=== PATIENT | female | born 1960 | race Caucasian/White ===

== ENCOUNTER 2018-07-15 14:52 | Emergency (ER) | payer OTHER ==
[2018-07-15] MEDS ORDERED: methylPREDNISolone 125 MG* 2 ML VIAL IV ONE (15:08)
[2018-07-15] MEDS ORDERED: Albuterol/Ipratropium NEB.SOL* Albuterol 2.5 MG/Ipratropium 0.5 MG 3 ML INH ONE ×2 (15:08→17:00)
--- NOTE | 2018-07-15 15:12 | ED ---
Respiratory - HPI Summary HPI Summary: 57 year female presents with chest pain and shortness pain. She has states she is more short of breath. She has history of COPD. She is smoker. She was to have oxygen at home but her son will not let her have oxygen at home. She started having increasing cough for the past two days. She denies any known fever. She states that she's been having increasing cough for the past 2 months and has been using mucinex. States she was at her primary and was in the waiting room developed the chest pain. She states it was sharp and was in her right side of her chest and radiates to the back. She admits to chest tightness that has since resolved. She was given a DuoNeb neb at the primary felt better. States it feels like when she had pneumonia in the past. She does have history of PE in the past. She is diabetic. - History of Current Complaint Chief Complaint: EDShortnessOfBreath Stated Complaint: SOB,CHEST PAIN PER EMS Time Seen by Provider: 07/15/18 15:02 Pain Intensity: 0 - Allergy/Home Medications Allergies/Adverse Reactions: Allergies Allergy/AdvReac Type Severity Reaction Status Date / Time cat dander Allergy Shortness Verified 07/15/18 14:59 of Breath iodine Allergy Unknown Verified 07/15/18 14:59 Reaction Details Sulfa (Sulfonamide Allergy Anaphylatic Verified 07/15/18 14:59 Antibiotics) Shock sulfacetamide Allergy Anaphylatic Verified 07/15/18 14:59 Shock zolpidem [From Ambien] Allergy Altered Verified 07/15/18 14:59 Mental Status Home Medications: Home Medications Albuterol 2.5MG/3ML (0.083%)* [Ventolin 2.5 MG/3 ML NEB.GREG*] 2.5 mg INH Q4HR PRN 07/15/18 [History Confirmed 07/15/18] Albuterol HFA INHALER* [Ventolin HFA Inhaler*] 1 puff INH Q4HR PRN 07/15/18 [ History Confirmed 07/15/18] Albuterol/Ipratropium RESP(NF) [Combivent Respimat(NF)] 1 puff INH Q6HR [History Confirmed 07/15/18] Amoxicillin/Clavulanate TAB* [Augmentin TAB 500 mg*] 500 mg PO BID 07/15/18 [ History Confirmed 07/15/18] Ascorbic Acid TAB* [Vitamin C TAB*] 500 mg PO QAM 07/15/18 [History Confirmed 07/15/18] Benztropine TAB* [Cogentin TAB*] 1 mg PO BID 07/15/18 [History Confirmed ] Calcium Carbonate/Vitamin D3 [Calcium 600 + Vit D Tablet] 1 tab PO QAM 07/15/18 [History Confirmed 07/15/18] DULoxetine DR CAP* [Cymbalta CAP*] 30 mg PO BID 07/15/18 [History Confirmed 11/25] Docusate CAP* [Colace Cap*] 100 mg PO BID 07/15/18 [History Confirmed 07/15/18] Fluticasone-Salmeterol 500-50* [Advair Diskus 500-50*] 1 puff INH BID 07/15/18 [ History Confirmed 07/15/18] Insulin Glargine,Hum.rec.anlog [Basaglar Kwikpen] 20 unit SUBCUT QAM 07/15/18 [ History Confirmed 07/15/18] Insulin Glargine,Hum.rec.anlog [Basaglar Kwikpen] 55 unit SUBCUT BEDTIME [History Confirmed 07/15/18] Insulin Lispro [Admelog] 0 unit SUBCUT TID AC 07/15/18 [History Confirmed ] LoraTADine TAB(NF) [Claritin 10 MG TAB(NF)] 10 mg PO DAILY 07/15/18 [History Confirmed 07/15/18] Lurasidone(*) [Latuda] 120 mg PO DAILY 07/15/18 [History Confirmed 07/15/18] Melatonin 10 mg PO BEDTIME 07/15/18 [History Confirmed 07/15/18] Multivitamins/Minerals TAB* [Theragran/minerals TAB*] 1 tab PO DAILY 07/15/18 [ History Confirmed 07/15/18] Pantoprazole TAB * [Protonix TAB*] 40 mg PO DAILY 07/15/18 [History Confirmed ] Pregabalin CAP(*) [Lyrica CAP(*)] 200 mg PO TID MDD 600 mg 07/15/18 [History Confirmed 07/15/18] Ramipril CAP* [Altace CAP*] 5 mg PO DAILY 07/15/18 [History Confirmed 07/15/18] Simvastatin (NF) [Zocor (NF)] 40 mg PO BEDTIME 07/15/18 [History Confirmed 07/15] Varenicline 0.5 mg Tab(Nf) [Chantix 0.5 MG TAB(NF)] 0.5 mg PO SEE INSTRUCTIONS 07/15/18 [History Confirmed 07/15/18] busPIRone TAB* [Buspar *] 30 mg PO BID 07/15/18 [History Confirmed 07/15/18] guaiFENesin ER TAB [Mucinex*] 600 mg PO BID PRN 07/15/18 [History Confirmed 11/25] lamoTRIgine TAB(*) [LaMICtal TAB(*)] 100 mg PO BID 07/15/18 [History Confirmed 07/15/18] metFORMIN* [Glucophage 500 MG TAB *] 500 mg PO BID 07/15/18 [History Confirmed 07/15/18] oxyCODONE/Acetamin 5/325 MG* [Percocet 5/325 TAB*] 1 tab PO Q8HR PRN 07/15/18 [ History Confirmed 07/15/18] PMH/Surg Hx/FS Hx/Imm Hx Endocrine/Hematology History: Reports: Hx Diabetes Denies: Hx Anticoagulant Therapy Cardiovascular History: Reports: Hx Coronary Artery Disease, Hx Hypertension Respiratory History: Reports: Hx Chronic Obstructive Pulmonary Disease (COPD) Infectious Disease History: Yes Infectious Disease History: Denies: Traveled Outside the [place] in Last 30 Days Review of Systems Negative: Fever Positive: Chest Pain - resolved Positive: Shortness Of Breath, Cough Negative: Abdominal Pain All Other Systems Reviewed And Are Negative: Yes Physical Exam Triage Information Reviewed: Yes Vital Signs On Initial Exam: Initial Vitals Temp Pulse Resp BP Pulse Ox 98.7 F 118 19 127/85 93 07/15/18 14:55 07/15/18 14:55 07/15/18 14:55 07/15/18 14:55 07/15/18 14:55 Vital Signs Reviewed: Yes Appearance: Positive: Well-Appearing Skin: Positive: Warm, Dry Head/Face: Positive: Normal Head/Face Inspection Eyes: Positive: Normal, EOMI, BERENICE, Conjunctiva Clear ENT: Positive: Normal ENT inspection, Pharynx normal, TMs normal Respiratory/Lung Sounds: Positive: Decreased Breath Sounds, Wheezes Cardiovascular: Positive: Normal, RRR Abdomen Description: Positive: Nontender, Soft Bowel Sounds: Positive: Present Musculoskeletal: Positive: Normal Neurological: Positive: Normal Psychiatric: Positive: Normal Diagnostics - Vital Signs Vital Signs Temp Pulse Resp BP Pulse Ox 07/15/18 14:55 98.7 F 118 19 127/85 93 - Laboratory Result Diagrams: 07/15/18 15:50 07/15/18 15:49 Lab Statement: Any lab studies that have been ordered have been reviewed, and results considered in the medical decision making process. - Radiology chest Radiology Interpretation Completed By: Radiologist Summary of Radiographic Findings: IMPRESSION: #. Stigmata of chronic obstructive pulmonary disease. No acute cardiopulmonary process. evident. - EKG No standard instances Cardiac Rate: Tachycardia EKG Rhythm: Sinus Tachycardia Summary of EKG Findings: sinus tachycardia Re-Evaluation - Re-Evaluation First Eval Re-Evaluation Time: 16:20 Change: Improved Comment: feeling better but still wheezing slightly Second Eval Re-Evaluation Time: 17:40 Change: Improved Comment: less wheezing Third Eval Re-Evaluation Time: 19:30 Change: Improved Comment: wants to go home, able to ambulate without being sob although o2 were about 90 Disposition - Course Course Of Treatment: 57 year female presents with chest pain and shortness pain. She has states she is more short of breath. She has history of COPD. She is smoker. She was to have oxygen at home but her son will not let her have oxygen at home. She started having increasing cough for the past two days. She denies any known fever. She states that she's been having increasing cough for the past 2 months and has been using mucinex. States she was at her primary and was in the waiting room developed the chest pain. She states it was sharp and was in her right side of her chest and radiates to the back. She admits to chest tightness that has since resolved. She was given a DuoNeb neb at the primary felt better. States it feels like when she had pneumonia in the past. On exam decreased breath sounds with wheezes at the bases noted. She is tachycardic. EKG shows sinus tach. wbc normal. crp elevated. troponin zero. bnp normal. chest xray shows copd. gave breathing treatment, solumedrol and feeling better. d-dimer is slightly elevated but not enough to think has PE. patient o2 did drop to 88 with walking and likely needs oxygen at home which she states that she is working on getting. patient does not want to be admitted and is stable enough to be discharged. discussed if anything changes to return. will discharge on augmentin for uti which will also cover for copd. will add on steriod which told sugar will be elevated. patient understand and agrees with plan. - Differential Dx - Cardiopulmonary Differential Diagnoses - Cardiopulmonary: Bronchitis, Exacerbation Of COPD, Lower Resp Infection - Diagnoses Provider Diagnoses: COPD (chronic obstructive pulmonary disease), UTI (urinary tract infection) Discharge - Sign-Out/Discharge Documenting (check all that apply): Patient Departure Patient Received Moderate/Deep Sedation with Procedure: No - Discharge Plan Condition: Stable Disposition: HOME Prescriptions: Amoxicillin/Clavulanate TAB* [Augmentin TAB 500 mg*] 500 mg PO BID #9 tab predniSONE TAB* [Deltasone TAB*] 50 mg PO DAILY #4 tab Patient Education Materials: Urinary Tract Infection in Women (ED), COPD ( Chronic Obstructive Pulmonary Disease) (ED) Referrals: No Primary Care Phys,NOPCP [Primary Care Provider] - Additional Instructions: Use inhaler up to two puffs every 4 hours for cough and wheezing Take steroid once a day for 4 more days starting tomorrow 5 days Take antibiotic twice a day starting tomorrow for 5 days Take Tylenol for pain every 6 hours Follow up with primary within 5 days Return to ED if develop severe shortness of breath, worsening chest pain, or any new or worsening symptoms - Billing Disposition and Condition Condition: STABLE Disposition: Home
[2018-07-15 15:51] LABS: Urine Appearance Cloudy; Urine Bacteria 1+ (Absent); Urine Bilirubin Negative (Negative); Urine Blood Negative (Negative); Urine Color Yellow; Urine Glucose Negative (Negative); Urine Ketones Negative (Negative); Urine Nitrite Positive (Negative); Urine Protein Negative (Negative); Urine Red Blood Cell Trace(0-2/hpf) (Absent); Urine Specific Gravity 1.003 (1.010-1.030); Urine Squamous Epithelial Cell Present (Absent); Urine Urobilinogen Negative (Negative); Urine White Blood Cell 2+(11-20/hpf) (Absent)
[2018-07-15 15:59] LABS: ABS Basophils 0.1 10^3/ul (0-0.2); ABS Eosinophils 0.2 10^3/ul (0-0.6); ABS Lymphocytes 2.7 10^3/ul (1.0-4.8); ABS Monocytes 0.8 10^3/ul (0-0.8); ABS Neutrophils 6.5 10^3/ul (1.5-7.7); ABS Nucleated RBC 0 10^3/ul; Eosinophil % 1.9 %; Hematocrit 44 % (33-41); Hemoglobin 15.3 g/dL (12.0-16.0); Lymphocyte % 26.2 %; Mean Corpuscular HGB Conc 35 g/dL (31-36); Mean Corpuscular Hemoglobin 32 pg (27-31); Mean Corpuscular Volume 92 fL (80-97); Mean Platelet Volume 8.5 fL (7.4-10.4); Nucleated Red Blood Cells % 0; Platelet Count 251 10^3/uL (150-450); Red Cell Distribution Width 16 % (10.5-15); White Blood Count 10.3 10^3/uL (3.5-10.8)
[2018-07-15 16:10] LABS: INR 0.98 (0.77-1.02)
[2018-07-15 16:11] LABS: Influenza A Molecular NEGATIVE (Negative); Influenza B Molecular NEGATIVE (Negative)
[2018-07-15] MEDS ORDERED: Magnesium Sulfate 2 GM IV* 2 GM/50 ML BAG IVPB ONE (16:20)
[2018-07-15 16:24] LABS: Albumin 3.9 g/dL (3.2-5.2); BUN/Creatinine Ratio 16.2 (8-20); C Reactive Protein 10.84 mg/L (<8.01); Calcium 9.6 mg/dL (8.6-10.3); EGFR African American 98.2 (>60); EGFR Non-African American 81.2 (>60); Globulin 3.8 g/dL (2-4); Potassium 4.2 mmol/L (3.5-5.0); Total Bilirubin 0.3 mg/dL (0.2-1.0); Total Protein 7.7 g/dL (6.4-8.9)
[2018-07-15 16:47] LABS: Magnesium 1.7 mg/dL (1.9-2.7)
[2018-07-15] MEDS ORDERED: Levofloxacin TAB* 500 MG PO ONE (19:26)
[2018-07-15 19:56] VITALS: BP 119/76
[2018-07-16 10:07] LABS: Hepatitis C Antibody Low Reactive (Nonreactive)
--- NOTE | 2018-07-17 08:22 | PN ---
Progress Note - Progress Note Date of Service: 07/15/18 Note: Urine culture preliminary grew 100,000 Escherichia coli Patient placed on Augmentin prior to discharge we will await sensitivities this time
--- NOTE | 2018-07-19 14:40 | PN ---
Progress Note - Progress Note Date of Service: 07/15/18 Note: Pt. seen in ED 07/15 and started on augmentin for UTI. Urine culture growing > 100k e. coli with intermittent susceptibility to augmenting. Attempted to call pt.'s number multiple times and it rings busy. No other numbers listed. Will send letter to return call to discuss if sxs are improving.
== END 2018-07-15 19:55 | disposition home or self-care (01) ==
LOC: ED 14:52
DX: J44.9 Chronic obstructive pulmonary disease, unspecified (principal); N39.0 Urinary tract infection, site not specified; B96.20 Unspecified Escherichia coli [E. coli] as the cause of diseases classified elsewhere; E11.9 Type 2 diabetes mellitus without complications; I25.10 Atherosclerotic heart disease of native coronary artery without angina pectoris; I10 Essential (primary) hypertension; R00.0 Tachycardia, unspecified; R06.02 Shortness of breath; F17.200 Nicotine dependence, unspecified, uncomplicated; Z88.2 Allergy status to sulfonamides; Z86.711 Personal history of pulmonary embolism; Z79.4 Long term (current) use of insulin; Z79.84 Long term (current) use of oral hypoglycemic drugs
CPT/HCPCS: 36415; 71046; 80053; 81003; 81015; 83605; 83735; 83880; 84484; 85025; 85379; 85610; 86140; 86803; 87040; 87077; 87086; 87186; 87522; 93005; 96365; 96366; 96374; 96375; 99284; A9270-GY; J2930; J3475

== ENCOUNTER 2019-02-22 13:58 | Inpatient (IN) | payer OTHER ==
--- NOTE | 2019-02-22 14:14 | ED ---
Respiratory - HPI Summary HPI Summary: This patient is a 58 year old female with a Hx of COPD brought in by EMS presenting to [facility] from her PCP with a respiratory complaint since several days ago. She states her PCP sent her here because she likely has pneumonia. She states she has had SOB and cough. She says she had fevers over the last couple of days. She has a nebulizer and has used it several times. She states EMS gave her O2 [employer] to some relief. - History of Current Complaint Chief Complaint: EDShortnessOfBreath Stated Complaint: SHORT OF BREATH Time Seen by Provider: 02/22/19 14:09 Hx Obtained From: Patient Onset/Duration: Lasting Days Pain Intensity: 0 - Allergy/Home Medications Allergies/Adverse Reactions: Allergies Allergy/AdvReac Type Severity Reaction Status Date / Time cat dander Allergy Shortness Verified 07/15/18 14:59 of Breath iodine Allergy Unknown Verified 07/15/18 14:59 Reaction Details Sulfa (Sulfonamide Allergy Anaphylatic Verified 07/15/18 14:59 Antibiotics) Shock sulfacetamide Allergy Anaphylatic Verified 07/15/18 14:59 Shock zolpidem [From Ambien] Allergy Altered Verified 07/15/18 14:59 Mental Status PMH/Surg Hx/FS Hx/Imm Hx Endocrine/Hematology History: Reports: Hx Diabetes Denies: Hx Anticoagulant Therapy Cardiovascular History: Reports: Hx Coronary Artery Disease, Hx Hypertension Respiratory History: Reports: Hx Chronic Obstructive Pulmonary Disease (COPD) Infectious Disease History: No Infectious Disease History: Denies: Traveled Outside the [place] in Last 30 Days - Family History Known Family History: Positive: Hypertension - Social History Alcohol Use: None Substance Use Type: Reports: None Smoking Status (MU): Current Every Day Smoker Review of Systems Positive: Fever Positive: Shortness Of Breath, Cough All Other Systems Reviewed And Are Negative: Yes Physical Exam - Summary Physical Exam Summary: Appearance: The patient is well-nourished in no acute distress and in no acute pain. Skin: The skin is warm and dry, and skin color reflects adequate perfusion. HEENT: The head is normocephalic and atraumatic. The pupils are equal and reactive. The conjunctivae are clear and without drainage. Nares are patent and without drainage. Mouth reveals moist mucous membranes, and the throat is without erythema and exudate. The external ears are intact. The ear canals are patent and without drainage. The tympanic membranes are intact. Neck: The neck is supple with full range of motion and non-tender. There are no carotid bruits. There is no neck vein distension. Respiratory: Chest is non-tender. Upper airway sounds, ronchi, and rales. Cardiovascular: Heart is regular rate and rhythm. There is no murmur or rub auscultated. There is no peripheral edema and pulses are symmetrical and equal. Abdomen: The abdomen is soft and non-tender. There are normal bowel sounds heard in all four quadrants and there is no organomegaly palpated. Musculoskeletal: There is no back tenderness noted. Extremities are non-tender with full range of motion. There is good capillary refill. There is no peripheral edema or calf tenderness elicited. Neurological: Patient is alert and oriented to person, place and time. The patient has symmetrical motor strength in all four extremities. Cranial nerves are grossly intact. Deep tendon reflexes are symmetrical and equal in all four extremities. Psychiatric: The patient has an appropriate affect and does not exhibit any anxiety or depression. Triage Information Reviewed: Yes Vital Signs On Initial Exam: Initial Vitals Temp Pulse Resp BP Pulse Ox 97.0 F 109 28 107/67 93 02/22/19 14:00 02/22/19 14:00 02/22/19 14:00 02/22/19 14:00 02/22/19 14:00 Vital Signs Reviewed: Yes Procedures - Sedation Patient Received Moderate/Deep Sedation with Procedure: No Diagnostics - Vital Signs Vital Signs Temp Pulse Resp BP Pulse Ox 02/22/19 14:00 97.0 F 109 28 107/67 93 - Laboratory Result Diagrams: 02/22/19 14:42 02/22/19 14:42 Lab Statement: Any lab studies that have been ordered have been reviewed, and results considered in the medical decision making process. - Radiology CXR Radiology Interpretation Completed By: Radiologist Summary of Radiographic Findings: No radiographic evidence of acute cardiopulmonary disease. ED Provider has reviewed this report. - EKG 1426 Cardiac Rate: Tachycardia - 106 BPM EKG Rhythm: Sinus Tachycardia Summary of EKG Findings: No STEMI. ED Physician has reviewed and interpreted this report. Disposition - Course Course Of Treatment: Ms. Aguilar is a current smoker with a history of COPD who has been coughing and short of breath for several days. She came in with hypoxia off oxygen which she does not have at home. Chest x-ray showed no acute infiltrate however on arrival she was given antibiotics and fluids. She was given duo nebs and some Solu-Medrol but did not significantly change. I spoke with Dr. Cisneros of the hospitalist team. - Diagnoses Provider Diagnoses: COPD exacerbation Discharge ED - Sign-Out/Discharge Documenting (check all that apply): Patient Departure - Admission, accepted by Dr. Aguilar - Discharge Plan Condition: Stable Disposition: ADMITTED TO [facility] - Billing Disposition and Condition Condition: STABLE Disposition: Admitted to [facility] - Attestation Statements Document Initiated by Adam: Yes Documenting Scribe: Kush Edwards Provider For Whom Adam is Documenting (Include Credential): Bruno Montemayor MD Scribe Attestation: I, Kush Edwards, scribed for Bruno Montemayor MD on 02/22/19 at 2032. Scribe Documentation Reviewed: Yes Provider Attestation: The documentation as recorded by the Kush darnell accurately reflects the service I personally performed and the decisions made by me, Bruno Montemayor MD Status of Scribe Document: Viewed
[2019-02-22] MEDS ORDERED: NS 0.9% 1000 ML** 1,000 ML IV ONE (14:15)
[2019-02-22] MEDS ORDERED: Azithromycin 500 mg/250 ml NS 500 MG/250 ML BAG IVPB ONE (14:15)
[2019-02-22] MEDS ORDERED: cefTRIAXone(*) 1 GM in NS 0.9% 50 ML* 50 ML IVPB ONE (14:15)
[2019-02-22 14:58] LABS: ABS Basophils 0.1 10^3/ul (0-0.2); ABS Lymphocytes 1.5 10^3/ul (1.0-4.8); ABS Monocytes 0.7 10^3/ul (0-0.8); ABS Neutrophils 8.8 10^3/ul (1.5-7.7); Hematocrit 42 % (35-47); Hemoglobin 14.2 g/dL (12.0-16.0); Lymphocyte % 13.2 %; Mean Corpuscular HGB Conc 34 g/dL (31-36); Mean Corpuscular Hemoglobin 32 pg (27-31); Mean Corpuscular Volume 95 fL (80-97); Nucleated Red Blood Cells % 0.1; Platelet Count 163 10^3/uL (150-450); Red Cell Distribution Width 15 % (10-15)
[2019-02-22 15:25] LABS: Albumin 3.3 g/dL (3.2-5.2); BUN/Creatinine Ratio 21.1 (8-20); C Reactive Protein 184.02 mg/L (<8.01); Calcium 8.6 mg/dL (8.6-10.3); EGFR African American 102.7 (>60); EGFR Non-African American 84.8 (>60); Globulin 3.3 g/dL (2-4); Potassium 3.5 mmol/L (3.5-5.0); Total Bilirubin 0.3 mg/dL (0.2-1.0); Total Protein 6.6 g/dL (6.4-8.9)
--- OUTSIDE RECORDS SUMMARY | 2019-02-22 15:31 | XMS REPORT | Summary of Care ---
:1960 Author Organization [facility] Address [address] [facility] [place] [address] Care Team Providers Name Role Phone FinnHannah ortiz Primary Care Provider Reason for Visit Reason Comments Cough c/o productive cough x1 month with green phlegm. Fever 101-103 x3 days. Also c/o SOB. Encounter Details Date Type Department Care Team Description 02/22/2019 Office Visit [facility] [place], Community acquired pneumonia, unspecified laterality (Primary Dx); Practice Darline Rios MD Hypoxia; [address] Hypotension, unspecified hypotension type; [place] [address] [place] [address] Tachycardia [phone] Allergies Active Allergy Reactions Severity Noted Date Comments Ambien Other 02/13/2012 SLEEP WALK Cat Respiratory Reaction 02/13/2012 Iodine 11/28/2010 Sulfa Drugs Cross Reactors Respiratory Reaction 02/13/2012 Sulfacetamide Sodium 11/28/2010 documented as of this encounter (statuses as of 02/22/2019) Medications Medication Sig Dispensed Refills Start Date End Date Status LISPRO insulin, RAPID - Inject beneath 3 vial 5 02/18/2018 Active Acting, (ADMELOG) 100 the skin THREE UNIT/ML Subcutaneous TIMES DAILY Solution BEFORE MEALS. Insulin Syringe 27G X 1 Each by Does 100 Each 5 03/14/2018 Active 1/2" 1 ML Does not not apply route apply Misc DIRECTED. Dx: E11.9 Insulin Syringe-Needle 1 Each by Does 100 Each 5 03/18/2018 Active U-100 (EASY TOUCH not apply route FLIPLOCK INSULIN SY) DIRECTED. 29G X 1/2" 1 ML Does not apply Misc duloxetine (CYMBALTA) Take 1 Cap by 60 Cap 0 03/18/2018 Active 30 MG Oral CAPSULE mouth TWICE ENTERIC COATED DAILY. PARTICLES Additional information Patient taking differently: 30 mg Oral DAILY, Reported on 07/23/2018 1:26 PM lamotrigine (LAMICTAL) 100 Take 1 Tab by mouth TWICE 60 Tab 0 03/19/2018 Active MG Oral Tab DAILY. Lurasidone HCl (LATUDA) 120 Take 120 mg by mouth 30 Tab 0 03/19/2018 Active MG Oral Tab DAILY. Insulin Pen Needle (PEN 1 Each by Does not apply 100 Each 5 04/22/2018 Active NEEDLES) 31G X 5 MM Does not route DIRECTED. apply Misc albuterol (PROVENTIL, 3 mL by Inhalation-SVN 50 vial 3 06/24/2018 Active VENTOLIN) (2.5 MG/3ML) route EVERY FOUR HOURS 0.083% Inhalation Nebu NEEDED (wheezing). SolnIndications: COPD exacerbation (HCC) albuterol HFA (VENTOLIN) 108 Take 2 Puffs by 1 Inhaler 5 06/24/2018 Active (90 Base) MCG/ACT Inhalation inhalation EVERY FOUR Aero SolnIndications: COPD HOURS NEEDED exacerbation (HCC) (wheezing). simvastatin (ZOCOR) 40 MG TAKE ONE TABLET BY MOUTH 30 Tab 5 06/28/2018 Active Oral Tab AT BEDTIME loratadine Take 1 Tab by mouth 30 Tab 5 07/01/2018 Active (CLARITIN,ALAVERT) 10 MG DAILY. Oral Tab Alcohol Swabs (ALCOHOL PREP) 1 Package by Does not 2 Each 3 07/01/2018 Active 70 % Does not apply Pads apply route TWICE DAILY. E11.9 BD SHARPS CONTAINER HOME 1 Container by Does not 1 Each 2 07/01/2018 Active Does not apply Misc apply route DAILY. E11.9 Insulin Glargine (BASAGLAR 20 units in the morning 3 Device 5 07/05/2018 Active KWIKPEN) 100 UNIT/ML and 50 units at bed time Subcutaneous Solution Pen-injector Additional information Patient taking differently: 35 units in the morning and 15 units at bed time , Reported on 02/12/2019 4:06 PM COMBIVENT RESPIMAT 20-100 INHALE ONE PUFF BY MOUTH 3 Inhaler 1 09/16/2018 Active MCG/ACT Inhalation Aero Soln EVERY 6 HOURS ramipril (ALTACE) 2.5 MG TAKE ONE CAPSULE BY MOUTH 90 Cap 1 09/18/2018 Active Oral Cap EVERY MORNING docusate sodium (COLACE) 100 Take 1 Cap by mouth TWICE 60 Cap 5 10/01/2018 Active MG Oral CapIndications: DAILY. Constipation, unspecified constipation type metFORMIN (GLUCOPHAGE) 500 TAKE ONE TABLET BY MOUTH 60 Tab 5 11/07/2018 Active MG Oral Tab TWICE A DAY guaifenesin (MUCINEX) 600 MG Take 1 Tab by mouth EVERY 60 Tab 5 11/15/2018 Active Oral TABLET SR 12 TWELVE HOURS. HRIndications: COPD exacerbation (HCC) Blood Glucose Monitor 1 Device by Does not 1 Device 0 12/10/2018 Active Software Does not apply apply route DIRECTED. Device Insurance preferred. E11.9 Glucose Blood In Vitro Strip 1 Strip by In Vitro route 200 Strip 5 2018 Active TWICE DAILY. Insurance preferred - E11.9 Blood Glucose Monitoring 1 Kit by Does not apply 1 Kit 0 12/18/2018 Active Suppl (D-CARE GLUCOMETER) route TWO TIMES DAILY w/Device Does not apply Kit BEFORE MEALS. Freestyle Lite Meter nystatin (MYCOSTATIN) [id number] Take 5 mL by mouth FOUR 280 mL 0 01/02/2019 Active UNIT/ML Mouth/Throat TIMES DAILY. Swish and Suspension swallow WIXELA INHUB 500-50 MCG/DOSE INHALE ONE PUFF BY MOUTH 1 Inhaler 5 2018 Active Inhalation AEROSOL POWDER, TWICE A DAY BREATH ACTIVATEDIndications: COPD exacerbation (HCC) Pregabalin (LYRICA) 200 MG Take 1 Cap by mouth THREE 90 Cap 3 02/10/2019 Active Oral Cap TIMES DAILY. Max Daily Amount: 600 mg. OXYcodone-acetaminophen TAKE TWO TABLETS BY MOUTH 90 Tab 0 02/13/2019 Active (PERCOCET) 5-325 MG Oral EVERY 8 HOURS NEEDED TabIndications: DDD FOR PAIN MAXIMUM DAILY (degenerative disc disease), DOSE = 6 TABLETS lumbar fluticasone-salmeterol Take 1 INHL by inhalation 0 Active diskus (ADVAIR DISKUS) TWICE DAILY. 500-50 MCG/DOSE Inhalation AEROSOL POWDER, BREATH ACTIVATED documented as of this encounter (statuses as of 02/22/2019) Active Problems Problem Noted Date Urinary retention 06/13/2017 Chronic respiratory failure with hypoxia 06/13/2017 Acute UTI 06/13/2017 Sepsis due to pneumonia 06/12/2017 Multifocal pneumonia 06/11/2017 COPD with asthma Fibromyalgia GERD (gastroesophageal reflux disease) Hyperlipidemia Hypertension Psychiatric disorder Tobacco use disorder Type II diabetes mellitus Overview: non-insulin dependent documented as of this encounter (statuses as of 02/22/2019) Resolved Problems Problem Noted Date Resolved Date Metabolic encephalopathy 06/13/2017 06/13/2017 Acute on chronic respiratory failure with hypoxia 06/12/2017 06/13/2017 [facility] resident 06/12/2017 02/15/2018 Right leg pain 10/02/2012 06/12/2017 Overview: Normal EMG/NCV Degeneration of lumbar or lumbosacral intervertebral disc 10/02/20122017 Degenerative lumbar spinal stenosis 10/02/2012 06/12/[address] 10/02/2012 06/12/2017 Unspecified nonpsychotic mental disorder 10/02/2012 06/12/2017 Chronic back pain 10/02/2012 06/12/2017 Peripheral neuropathy 06/13/2017 documented as of this encounter (statuses as of 02/22/2019) Immunizations Name Administration Dates Next Due Hepatitis B Vaccine 08/13/2017, 07/11/2017 Influenza (IM) Preservative Free 01/01/2019, 01/08/2018, 05/23/2017 MENINGOCOCCAL POLYSACCHARIDE 05/23/2017 VACCINE(MENOMUNE) Pneumococcal Conjugate Vaccine 03/15/2016 Tuberculin Skin Test 06/01/2017, 05/18/2017 documented as of this encounter Social History Tobacco Use Types Packs/Day Years Used Date Current Every Day Smoker 1 35 Started: 11/20/2015 Smokeless Tobacco: Never Used Alcohol Use Drinks/Week oz/Week Comments No ho alcohol abuse Sex Assigned at Date Recorded Not on file Job Start Date Occupation Industry Not on file Not on file Not on file Travel History Travel Start Travel End No recent travel history available. documented as of this encounter Last Filed Vital Signs Vital Sign Reading Time Taken Comments Blood Pressure 80/40 02/22/2019 12:51 PM EST Pulse 126 02/22/2019 12:51 PM EST Temperature 37.3 02/22/2019 12:51 PM C (99.2 EST F) Respiratory Rate - - Oxygen Saturation 91% 02/22/2019 12:51 PM 2 liters Oxygen EST Inhaled Oxygen Concentration - - Weight - - Height - - Body Mass Index - - documented in this encounter Progress Notes Darline Montgomery MD - 02/22/2019 1:00 PM EST PATIENT: Estela Aguilar : 1960 DATE OF SERVICE: 02/22/2019 Nursing Notes: Jolie Diaz LPN 02/22/2019 12:56 PM Sign at exiting of workspace Chief Complaint Patient presents with Cough c/o productive cough x1 month with green phlegm. Fever 101-103 x3 days. Also c /o SOB. Jolie Diaz LPN SUBJECTIVE: History was provided by the patient. Estela Aguilar is a 58-y.o. female who presents with cough and fever. Patient states she has had a productive cough for a month, but worse the last few days with fever [id number] at home. She saw Hannah Cade MD on 02/12/19 for her back pain and review of recent MRI which showed thoracic insufficiency fractures and right paraspinal hematoma. She was referred to neurosurgery. Her cough was not a complaint. O2 sat that visit was 97% Symptoms include congestion, fever, and cough. Onset of symptoms was several days ago, rapidly worsening since that time. She also complains of productive cough with green sputum and wheezing for several days. She denies emesis, diarrhea, bloody or black stool, abdominal pain. She did yesterday call thinking she as a urinary tract infection from [facility] herself and [facility] was called in, which she started. She then complained of cough, chest tightness, shortness of breath and that her nebulizer was not helping. She was directed to the ER twice yesterday and refused. Evaluation to date: none.. Treatment to date: She us using her nebulizer and it has not helped, last used just prior to cominghere today. She is a smoker, has COPD, and has diabetes. She says her glucose this morning was 111, says her diabetes control has been good. MR THORACIC SPINE W CONTRAST Narrative: Procedure(s): MR THORACIC SPINE W CONTRAST Date of service: 02/07/2019 1:31 PM Provided clinical information: 58 years, Female, "r/o tumor" Procedure and materials: Standard protocol. Comparison studies: Noncontrast study of thoracic spine 01/20/2019 Technique: Multisequence multiplanar MR imaging of the thoracic is obtained on a 1.5 Dinah magnet with intravenous contrast. Findings: The vertebral heights and alignment grossly appears well maintained and grossly unchanged from the previous exam. On the noncontrast exam there is signal abnormality seen adjacent to the inferior endplates of T7, T8 and T9 vertebral bodies showing high signal on T2-weighted images, low signal on T1-weighted images, showing postcontrast enhancement. This is also showing adjacent soft tissue involvement in right paracentral location. Findings indicative of bone marrow edema secondary to degenerative changes and there are dominant lateral marginal osteophytes seen predominantly in right paracentral location, at the level of T7-T8 vertebral bodies which are causing adjacent soft tissue edema along with inflammation there by postcontrast enhancement of the bone marrow and adjacent soft tissue is seen. No definite evidence of a focal mass lesion is identified. No fracture is identified. There is no evidence of subluxation of the vertebral bodies. The disc spaces are grossly unremarkable. There is no evidence of disc herniation. Mild endplate changes are seen. Disc osteophyte complex left paracentral location of T10-11 intervertebral disc space with ventral impression on thecal sac without central spinal canal stenosis or neural foraminal narrowing. L1-2 level left sided paracentral disc osteophyte complex, without central spinal canal stenosis. There is no evidence of central spinal stenosis. The neuroforaminal canals are unremarkable. There is no evidence of facet arthrosis.. Facets appear aligned and there is no splaying of the spinous processes, listhesis, fracture. The spinal cord caliber is normal. The spinal cord intensity is normal. There is no evidence of nerve root compression. The posterior elements are unremarkable. are unremarkable. The paravertebral soft tissues are unremarkable. Impression: Findings as described above are indicative of degenerative changes in mid thoracic spine with marginal osteophytes causing inflammation of surrounding soft tissue. There is some bone marrow edema seen adjacent to inferior endplates of T7-T9 vertebral bodies no definite evidence of compression fracture seen on this exam. Vertebral heights and alignment appearing intact. No significant posterior disc disease is seen, except at T10-11 level. There is mild left paracentral disc osteophyte complex without central spinal canal stenosis or neural foraminal narrowing. No abnormal dural or intrathecal enhancement is seen. This exam is peer reviewed Urgency: Routine. This is a routine medical imaging report. Recommendation: No specific imaging recommendation. Signed by Freddie Jett MD, MHA, FCPS on 02/14/2019 12:45 PM Lab Results Component Value Date GLYCO 6.4 (H) 11/28/2018 GLYCO 6.9 (H) 05/30/2018 GLYCO 10.1 (H) 02/20/2018 Lab Results Component Value Date WBC 13.4 (H) 06/14/2017 HGB 11.5 (L) 06/14/2017 HCT 34.0 (L) 06/14/2017 PLAT 228 06/14/2017 Lab Results Component Value Date NA 139 11/28/2018 K 4.3 11/28/2018 CL 102 11/28/2018 CO2 28 11/28/2018 GLUCOSE 63 (L) 11/28/2018 BUN 13 11/28/2018 CREATININE 0.7 11/28/2018 CALCIUM 9.7 11/28/2018 TP 7.6 11/28/2018 ALBUMIN 4.2 11/28/2018 AST 35 11/28/2018 ALT 29 11/28/2018 ALK 74 11/28/2018 TBILI 0.3 11/28/2018 EGFR >60 11/28/2018 Lab Results Component Value Date CHOL 146 11/28/2018 TRIG 95 11/28/2018 HDL 45 (L) 11/28/2018 LDL 82 11/28/2018 LDLHDLRATIO 1.8 11/28/2018 CHOLHDLRATIO 3.2 11/28/2018 Lab Results Component Value Date TSH 0.36 (L) 02/20/2018 Patient Active Problem List Diagnosis Multifocal pneumonia Sepsis due to pneumonia (HCC) COPD with asthma (HCC) Fibromyalgia GERD (gastroesophageal reflux disease) Hyperlipidemia Hypertension Psychiatric disorder Tobacco use disorder Type II diabetes mellitus (HCC) Urinary retention Chronic respiratory failure with hypoxia (HCC) Acute UTI Past Medical History: Diagnosis Date Bipolar affective disorder (HCC) COPD with asthma (HCC) Fibromyalgia GERD (gastroesophageal reflux disease) Hyperlipidemia Schizophrenia (HCC) Type II diabetes mellitus (HCC) non-insulin dependent Current Outpatient Medications Medication Sig albuterol (PROVENTIL, VENTOLIN) (2.5 MG/3ML) 0.083% Inhalation Nebu Soln 3 mL by Inhalation-SVN route EVERY FOUR HOURS NEEDED (wheezing). albuterol HFA (VENTOLIN) 108 (90 Base) MCG/ACT Inhalation Aero Soln Take 2 Puffs by inhalation EVERY FOUR HOURS NEEDED (wheezing). Alcohol Swabs (ALCOHOL PREP) 70 % Does not apply Pads 1 Package by Does not apply route TWICEDAILY. E11.9 BD SHARPS CONTAINER HOME Does not apply Misc 1 Container by Does not apply route DAILY. E11.9 Blood Glucose Monitor Software Does not apply Device 1 Device by Does not apply route DIRECTED. Insurance preferred. E11.9 Blood Glucose Monitoring Suppl (D-CARE GLUCOMETER) w/Device Does not apply Kit 1 Kit by Does not apply route TWO TIMES DAILY BEFORE MEALS. Freestyle Lite Meter COMBIVENT RESPIMAT 20-100 MCG/ACT Inhalation Aero Soln INHALE ONE PUFF BY MOUTH EVERY 6 HOURS docusate sodium (COLACE) 100 MG Oral Cap Take 1 Cap by mouth TWICE DAILY. duloxetine (CYMBALTA) 30 MG Oral CAPSULE ENTERIC COATED PARTICLES Take 1 Cap by mouth TWICE DAILY. (Patient taking differently: Take 30 mg by mouth DAILY.) fluticasone-salmeterol diskus (ADVAIR DISKUS) 500-50 MCG/DOSE Inhalation AEROSOL POWDER, BREATH ACTIVATED Take 1 INHL by inhalation TWICE DAILY. Glucose Blood In Vitro Strip 1 Strip by In Vitro route TWICE DAILY. Insurance preferred - E11.9 guaifenesin (MUCINEX) 600 MG Oral TABLET SR 12 HR Take 1 Tab by mouth EVERY TWELVE HOURS. Insulin Glargine (BASAGLAR KWIKPEN) 100 UNIT/ML Subcutaneous Solution Pen -injector 20 units in the morning and 50 units at bed time (Patient taking differently: 35 units in the morning and 15 units at bed time) Insulin Pen Needle (PEN NEEDLES) 31G X 5 MM Does not apply Misc 1 Each by Does not apply route DIRECTED. Insulin Syringe 27G X 1/2" 1 ML Does not apply Misc 1 Each by Does not apply route DIRECTED. Dx: E11.9 Insulin Syringe-Needle U-100 (EASY TOUCH FLIPLOCK INSULIN SY) 29G X 1/2" 1 ML Does not apply Misc 1 Each by Does not apply route DIRECTED. lamotrigine (LAMICTAL) 100 MG Oral Tab Take 1 Tab by mouth TWICE DAILY. LISPRO insulin, RAPID - Acting, (ADMELOG) 100 UNIT/ML Subcutaneous Solution Inject beneath the skin THREE TIMES DAILY BEFORE MEALS. loratadine (CLARITIN,ALAVERT) 10 MG Oral Tab Take 1 Tab by mouth DAILY. Lurasidone HCl (LATUDA) 120 MG Oral Tab Take 120 mg by mouth DAILY. metFORMIN (GLUCOPHAGE) 500 MG Oral Tab TAKE ONE TABLET BY MOUTH TWICE A DAY nystatin (MYCOSTATIN) 117047 UNIT/ML Mouth/Throat Suspension Take 5 mL by mouth FOUR TIMES DAILY. Swish and swallow OXYcodone-acetaminophen (PERCOCET) 5-325 MG Oral Tab TAKE TWO TABLETS BY MOUTH EVERY 8 HOURS NEEDED FOR PAIN MAXIMUM DAILY DOSE = 6 TABLETS Pregabalin (LYRICA) 200 MG Oral Cap Take 1 Cap by mouth THREE TIMES DAILY. Max Daily Amount: 600 mg. ramipril (ALTACE) 2.5 MG Oral Cap TAKE ONE CAPSULE BY MOUTH EVERY MORNING simvastatin (ZOCOR) 40 MG Oral Tab TAKE ONE TABLET BY MOUTH AT BEDTIME WIXELA INHUB 500-50 MCG/DOSE Inhalation AEROSOL POWDER, BREATH ACTIVATED INHALE ONE PUFF BY MOUTH TWICE A DAY No current facility-administered medications for this visit. Allergies Allergen Reactions Ambien Other SLEEP WALK Cat Respiratory Reaction Iodine Sulfa Drugs Cross Reactors Respiratory Reaction Sulfacetamide Sodium Past Surgical History: Procedure Laterality Date APPENDECTOMY HYSTERECTOMY, ABDOMINAL LAMINECTOMY EXC. OF INTRASPINAL 2010 Laminectomy L3,4,5. Facetectomy L3-4, L4-5 OTHER CERVICAL FUSION 02/2008 fusion C5,6,7, laminectomy C6,7 [place] REMOVAL GALLBLADDER Social History Socioeconomic History Marital status: Spouse name: Not on file Number of children: Not on file Years of education: Not on file Highest education level: Not on file Occupational History Not on file Social Needs Financial resource strain: Not on file Food insecurity: Worry: Not on file Inability: Not on file Transportation needs: Medical: Not on file Non-medical: Not on file Tobacco Use Smoking status: Current Every Day Smoker Packs/day: 1.00 Years: 35.00 Pack years: 35.00 Start date: 11/20/2015 Smokeless tobacco: Never Used Substance and Sexual Activity Alcohol use: No Comment: ho alcohol abuse Drug use: No Sexual activity: Not on file Lifestyle Physical activity: Days per week: Not on file Minutes per session: Not on file Stress: Not on file Relationships Social connections: Talks on phone: Not on file Gets together: Not on file Attends episcopalian service: Not on file Active member of club or organization: Not on file Attends meetings of clubs or organizations: Not on file Relationship status: Not on file Intimate partner violence: Fear of current or ex partner: Not on file Emotionally abused: Not on file Physically abused: Not on file Forced sexual activity: Not on file Other Topics Concern Not on file Social History Narrative Not on file REVIEW OF SYSTEMS: CONSTITUTIONAL: positive for fevers, chills and malaise. EYES: negative. EARS, NOSE, MOUTH, THROAT and FACE: positive for nasal congestion. RESPIRATORY: positive for cough, sputum, dyspnea on exertion or short of breath , negative for hemoptysis. CARDIOVASCULAR: Positive for chest pressure/discomfort, dyspnea yesterday, but denies chest pain now GASTROINTESTINAL: negative for melena, diarrhea, abdominal pain and or bloody stool. She has had intermittent vomiting : She has had dysuria, straight cath's herself four times daily OBJECTIVE: BP (!) 80/40 (BP Location: Left arm, Patient Position: Lying) | Pulse (!) 126 | Temp 99.2 F (37.3 C) | SpO2 91% Comment: 2 liters Oxygen O2 sat on RA on arrival 80% GENERAL: Fatigued with some pallor, ashen-van appearing, diaphoretic, no distress. HEAD: normocephalic, atraumatic without lesions or tenderness EYES: conjunctivae: clear. EARS: normal tympanic membranes and external ear canals, bilaterally. MOUTH: abnormal findings: mild oropharyngeal erythema and very dry tongue and mucosa. NECK: supple, symmetrical, trachea midline and mild anterior cervical adenopathy. HEART: : tahcycardic rate, regular rhythm LUNGS: rales: right base, left base, rhonchi: right apex, left apex, diminished breath sounds: bilateral. ABDOMEN: soft, non-tender. Bowel sounds normal. No masses, no organomegaly. EXTREMITIES: No edema EKG S. Tachycardia, poor baseline, inferior infarct age indeterminate, rate 121 ASSESSMENT/PLAN: ICD-9-CM ICD-10-CM 1. Community acquired pneumonia, unspecified laterality 486 J18.9 2. Hypoxia 799.02 R09.02 3. Hypotension, unspecified hypotension type 458.9 I95.9 4. Tachycardia 785.0 R00.0 Patient reluctantly agrees to go to the ER. Ambulance called given her hypoxia and hypotension. Her ride was helpful als EKG S. Tachycardia, possible old IWMI but poor baseline Ambulance arrived to take patient to [facility] I called and gave report to the ER physician. Author: Darline Montgomery MD 02/22/2019 13:41 documented in this encounter Plan of Treatment Date Type Specialty Care Team Description 02/24/2019 Office Visit Neurosurgery ParamoreMamadou MD [address] [place] [place] [address] [phone] 02/27/2019 Ancillary Procedure Radiology 05/26/2019 Lab Internal Medicine Health Maintenance Due Date Last Done Comments HEPATITIS C SCREENING 2001 COLONOSCOPY SCREENING 12/16/2011 ZOSTER IMMUNIZATION SERIES 12/16/2011 (1 of 2) LUNG CANCER SCREENING 2016 FOOT EXAM 03/14/2019 03/14/2018, 03/14/2018 MAMMOGRAM (SCREENING) 03/14/2019 03/14/2018, 06/22/2017 HEMOGLOBIN A1C 05/31/2019 11/28/2018, 05/30/2018, 02/20/2018, Additional history exists DEPRESSION SCREENING 09/05/2019 09/04/2018 PNEUMOCOCCAL 0-64 YRS (1 of 09/17/2019 03/15/2016 Postponed from 1 - PPSV23) 05/10/2016 (Other) LIPID DISORDER SCREENING 11/29/2019 11/28/2018, 06/28/2018, 02/20/2018 Diabetic Eye Exam 01/15/2020 01/14/2019, 12/05/2018 MENINGOCOCCAL VACCINE IMM Aged Out 05/23/2017 No longer eligible based on patient's age to complete this topic INFLUENZA VACCINE Completed 01/01/2019, 01/08/2018, 05/23/2017 HPV IMMUNIZATION SERIES Aged Out No longer eligible based on patient's age to complete this topic documented as of this encounter Goals Goal Patient Goal Associated Recent Patient-Stated? Author Type Problems Progress Blood Pressure Blood Pressure 80/40 No Rayo, < 140/90 (02/22/2019 Hannah, 12:51 PM EST) Note: This is an individualized treatment (blood pressure) goal for Estela Aguilar: Displayed above (on the left) is your goal for blood pressure control. Your most recent blood pressure is also shown above, on the right. You should try to achieve blood pressures that are lower than your goal listed above (on the left). Smoking Cessation COPD Hannah Layne MD Note: This is an individualized treatment (COPD) goal for Estela Jeff: Quit smoking immediately! Your provider has information and resources that may help you to quit. Glycohemoglobin A1c < 7.0 Diabetes 6.4 (11/28/2018 12:28 Hannah Layne, PM EDT) Note: This is an individualized treatment (diabetes control, HgbA1C) goal for Estela Aguilar: Displayed above is your progress towards your HgbA1C goal. Your goal is shown above (on the left); your most recent HgbA1C is shown on the right. Note that lower numbers are better. Weight loss vs. 18 mo Lifestyle 10.4 (02/12/2019 3:34 PM Hannah Layne MD max (lbs) >= 10 EST) Note: This is an individualized lifestyle goal for Estela Aguilar: Your body mass index (BMI) is more than 30. You should lose weight. A reasonable starting goal is to lose 10 pounds. Displayed above is how many pounds you have lost thus far towards your 10 pound weight loss goal. Keep immunizations current Lifestyle Hannah Layne MD Note: This is an individualized lifestyle goal for Estela Aguilar: Please be sure to keep up-to-date on recommended immunizations. For example, this would include a yearly influenza vaccine. Immunization status can be seen by looking at the Health Maintenance sections of your [facility], Plan of Care, and any After Visit Summaries. Take all prescribed medications as Self-management Hannah Layne MD directed Note: This is an individualized self-management goal for Estela Aguilar: Please take all prescribed medications as directed. 1. Do not skip doses. If you cannot afford your medications, talk with your doctor. 2. Use a pill reminder system such as a pill box if needed. Your pharmacist can help you with this. 3. Contact your Pharmacy 5 days before your medication runs out. If you cannot take your medications for any reasons, talk with your doctor. 4. Please bring all of your medication bottles and inhalers (or a list of all your medications/inhalers) with you to every visit. Potential barriers to meeting all of your care plan goals will continue to be addressed on an ongoing basis. documented as of this encounter Results Not on filedocumented in this encounter Visit Diagnoses Diagnosis Community acquired pneumonia, unspecified laterality - Primary Hypoxia Hypoxemia Hypotension, unspecified hypotension type Tachycardia Tachycardia, unspecified documented in this encounter Guarantor Name Account Type Relation to Date of Phone Billing Address Patient Estela Aguilar Personal/Family 1960 [address] [facility] (Home) [place], [place] [phone] (Work) documented as of this encounter
--- OUTSIDE RECORDS SUMMARY | 2019-02-22 15:31 | XMS REPORT | Summary of Care ---
:1960 Author Organization [facility] Address [address] [facility] [place] [address] Care Team Providers Name Role Phone Hannah Cade Primary Care Provider Reason for Referral Refer to Department Only (Routine) Status Reason Specialty Diagnoses / Referred By Referred To Procedures Contact Contact Pending Review NEUROSURGERY / Diagnoses Midline thoracic back pain, unspecified chronicity Luz Cade MD [address] [place] [address] Scheduling Instructions For Pituitary Masses: Refer to Endocinology and Ophthalmology for testing. Patients already having this testing should have an internal referral to Neurosurgery placed. For Suspected Normal Pressure Hydrocephalus: Refer to neurology for a dementia work up, have a large volume lumbar puncture (40 cc) performed. For incontinence, refer to Urology. Obtain Physical Therapy Gait evaluation before and after large volume lumbar puncture. Patients should have the above work ups performed prior to consulting Neurosurgery. For Confirmed Normal Pressure Hydrocephalus: Consult Neurosurgery. Reason for Visit Reason Comments Follow Up MRI results, 01/20 w/o contrast, 02/07 w/contrast Encounter Details Date Type Department Care Team Description 02/12/2019 Office Visit [facility], Midline thoracic back pain , unspecified chronicity (Primary Dx); Practice MD Hannah Age-related osteoporosis with current pathological fracture, initial encounter [address] [place] [address] [place] [address] [phone] Allergies Active Allergy Reactions Severity Noted Date Comments Ambien Other 02/13/2012 SLEEP WALK Cat Respiratory Reaction 02/13/2012 Iodine 11/28/2010 Sulfa Drugs Cross Reactors Respiratory Reaction 02/13/2012 Sulfacetamide Sodium 11/28/2010 documented as of this encounter (statuses as of 02/12/2019) Medications Medication Sig Dispensed Refills Start Date [...] Reported on 02/12/2019 4:06 PM COMBIVENT RESPIMAT INHALE ONE PUFF BY 3 Inhaler 1 09/16/2018 Active 20-100 MCG/ACT MOUTH EVERY 6 Inhalation Aero Soln HOURS ramipril (ALTACE) 2.5 TAKE ONE CAPSULE 90 Cap 1 09/18/2018 Active MG Oral Cap BY MOUTH EVERY MORNING docusate sodium Take 1 Cap by 60 Cap 5 10/01/2018 Active (COLACE) 100 MG Oral mouth TWICE DAILY. CapIndications: Constipation, unspecified constipation type metFORMIN (GLUCOPHAGE) TAKE ONE TABLET BY 60 Tab 5 11/07/2018 Active 500 MG Oral Tab MOUTH TWICE A DAY guaifenesin (MUCINEX) Take 1 Tab by 60 Tab 5 11/15/2018 Active 600 MG Oral TABLET SR mouth EVERY TWELVE 12 HRIndications: COPD HOURS. exacerbation (HCC) Blood Glucose Monitor 1 Device by Does 1 Device 0 12/10/2018 Active Software Does not not apply route apply Device DIRECTED. Insurance preferred. E11.9 Glucose Blood In Vitro 1 Strip by In 200 Strip 5 12/10/2018 Active Strip Vitro route TWICE DAILY. Insurance preferred - E11.9 Blood Glucose 1 Kit by Does not 1 Kit 0 12/18/2018 Active Monitoring Suppl apply route TWO (D-CARE GLUCOMETER) TIMES DAILY BEFORE w/Device Does not MEALS. Freestyle apply Kit Lite Meter nystatin (MYCOSTATIN) Take 5 mL by mouth 280 mL 0 01/02/2019 Active 922763 UNIT/ML FOUR TIMES DAILY. Mouth/Throat Swish and swallow Suspension OXYcodone-acetaminophe Take 2 Tabs by 90 Tab 0 01/13/2019 Active n (PERCOCET) 5-325 MG mouth EVERY EIGHT Oral TabIndications: HOURS NEEDED DDD (degenerative disc (pain). Max Daily disease), lumbar Amount: 6 Tabs. WIXELA INHUB 500-50 INHALE ONE PUFF BY 1 Inhaler 5 01/30/2019 Active MCG/DOSE Inhalation MOUTH TWICE A DAY AEROSOL POWDER, BREATH ACTIVATEDIndications: COPD exacerbation (HCC) Pregabalin (LYRICA) Take 1 Cap by 90 Cap 3 02/10/2019 Active 200 MG Oral Cap mouth THREE TIMES DAILY. Max Daily Amount: 600 mg. levofloxacin Take 1 Tab by 10 Tab 1 12/26/2018 Discontinued (LEVAQUIN) 500 MG Oral mouth DAILY 0700 9 Tab on Empty Stomach. fluconazole (DIFLUCAN Take 1 Tab by 5 Tab 0 01/01/2019 Discontinued 100 MG) 100 MG Oral mouth DAILY. 9 Tab documented as of this encounter (statuses as of 02/12/2019) Active Problems Problem Noted Date Urinary retention 06/13/2017 Chronic respiratory failure with hypoxia 06/13/2017 Acute UTI 06/13/2017 Sepsis due to pneumonia 06/12/2017 Multifocal pneumonia 06/11/2017 COPD with asthma Fibromyalgia GERD (gastroesophageal reflux disease) Hyperlipidemia Hypertension Psychiatric disorder Tobacco use disorder Type II diabetes mellitus Overview: non-insulin dependent documented as of this encounter (statuses as of 02/12/2019) Resolved Problems Problem Noted Date Resolved Date Metabolic encephalopathy 06/13/2017 06/13/2017 Acute on chronic respiratory failure with hypoxia 06/12/2017 06/13/2017 half-way resident 06/12/2017 02/15/2018 Right leg pain 10/02/2012 06/12/2017 Overview: Normal EMG/NCV Degeneration of lumbar or lumbosacral intervertebral disc 10/02/20122017 Degenerative lumbar spinal stenosis 10/02/2012 06/12/[address] 10/02/2012 06/12/2017 Unspecified nonpsychotic mental disorder 10/02/2012 06/12/2017 Chronic back pain 10/02/2012 06/12/2017 Peripheral neuropathy 06/13/2017 documented as of this encounter (statuses as of 02/12/2019) Immunizations Name Administration Dates Next Due Hepatitis [...] Sign Reading Time Taken Comments Blood Pressure 114/72 02/12/2019 3:34 PM EST Pulse 102 02/12/2019 3:34 PM EST Temperature 37.4 02/12/2019 3:34 PM EST C (99.4 F) Respiratory Rate - - Oxygen Saturation 97% 02/12/2019 3:34 PM EST Inhaled Oxygen Concentration - - Weight 93.9 kg (207 lb) 02/12/2019 3:34 PM EST Height 167.6 cm (5' 6") 02/12/2019 3:34 PM EST Body Mass Index 33.41 02/12/2019 3:34 PM EST documented in this encounter Patient Instructions Patient InstructionsHannah Cade MD - 02/12/2019 3:40 PM EST1. Schedule appointment with neurosurgeon 2. Schedule Dexa documented in this encounter Progress Notes Hannah Cade MD - 02/12/2019 3:40 PM EST Patient: Estela Aguilar Date of Service: 02/12/2019 Subjective: Estela Aguilar is a 58-y.o. female who presents for Chief Complaint Patient presents with Follow Up MRI results, 01/20 w/o contrast, 02/07 w/contrast Patient comes follow up Thoracic pain Fair pain control on current medication Past Medical History: Diagnosis Date Bipolar affective disorder (HCC) COPD with asthma (HCC) Fibromyalgia GERD (gastroesophageal reflux disease) Hyperlipidemia Schizophrenia (HCC) Type II diabetes mellitus (HCC) non-insulin dependent Outpatient Medications as of 02/12/2019 Medication Sig Dispense Refill albuterol (PROVENTIL, VENTOLIN) (2.5 MG/3ML) 0.083% Inhalation Nebu Soln 3 mL by Inhalation-SVN route EVERY FOUR HOURS NEEDED (wheezing). 50 vial 3 albuterol HFA (VENTOLIN) 108 (90 Base) MCG/ACT Inhalation Aero Soln Take 2 Puffs by inhalation EVERY FOUR HOURS NEEDED (wheezing). 1 Inhaler 5 Alcohol Swabs (ALCOHOL PREP) 70 % Does not apply Pads 1 Package by Does not apply route TWICEDAILY. E11.9 2 Each 3 BD SHARPS CONTAINER HOME Does not apply Misc 1 Container by Does not apply route DAILY. E11.91 Each 2 Blood Glucose Monitor Software Does not apply Device 1 Device by Does not apply route DIRECTED. Insurance preferred. E11.9 1 Device 0 Blood Glucose Monitoring Suppl (D-Molecular Detection GLUCOMETER) w/Device Does not apply Kit 1 Kit by Does not apply route TWO TIMES DAILY BEFORE MEALS. Freestyle Lite Meter 1 Kit 0 COMBIVENT RESPIMAT 20-100 MCG/ACT Inhalation Aero Soln INHALE ONE PUFF BY MOUTH EVERY 6 HOURS3 Inhaler 1 docusate sodium (COLACE) 100 MG Oral Cap Take 1 Cap by mouth TWICE DAILY. 60 Cap 5 duloxetine (CYMBALTA) 30 MG Oral CAPSULE ENTERIC COATED PARTICLES Take 1 Cap by mouth TWICE DAILY. (Patient taking differently: Take 30 mg by mouth DAILY.) 60 Cap 0 Glucose Blood In Vitro Strip 1 Strip by In Vitro route TWICE DAILY. Insurance preferred - E11.9 200 Strip 5 guaifenesin (MUCINEX) 600 MG Oral TABLET SR 12 HR Take 1 Tab by mouth EVERY TWELVE HOURS. 60 Tab 5 Insulin Glargine (BASAGLAR KWIKPEN) 100 UNIT/ML Subcutaneous Solution Pen -injector 20 units in the morning and 50 units at bed time (Patient taking differently: 35 units in the morning and 15 units at bed time) 3 Device 5 Insulin Pen Needle (PEN NEEDLES) 31G X 5 MM Does not apply Misc 1 Each by Does not apply route DIRECTED. 100 Each 5 Insulin Syringe 27G X 1/2" 1 ML Does not apply Misc 1 Each by Does not apply route DIRECTED. Dx: E11.9 100 Each 5 Insulin Syringe-Needle U-100 (EASY TOUCH FLIPLOCK INSULIN SY) 29G X 1/2" 1 ML Does not apply Misc 1 Each by Does not apply route DIRECTED. 100 Each 5 lamotrigine (LAMICTAL) 100 MG Oral Tab Take 1 Tab by mouth TWICE DAILY. 60 Tab 0 LISPRO insulin, RAPID - Acting, (ADMELOG) 100 UNIT/ML Subcutaneous Solution Inject beneath the skin THREE TIMES DAILY BEFORE MEALS. 3 vial 5 loratadine (CLARITIN,ALAVERT) 10 MG Oral Tab Take 1 Tab by mouth DAILY. 30 Tab 5 Lurasidone HCl (LATUDA) 120 MG Oral Tab Take 120 mg by mouth DAILY. 30 Tab 0 metFORMIN (GLUCOPHAGE) 500 MG Oral Tab TAKE ONE TABLET BY MOUTH TWICE A DAY 60 Tab 5 nystatin (MYCOSTATIN) 349408 UNIT/ML Mouth/Throat Suspension Take 5 mL by mouth FOUR TIMES DAILY. Swish and swallow 280 mL 0 OXYcodone-acetaminophen (PERCOCET) 5-325 MG Oral Tab Take 2 Tabs by mouth EVERY EIGHT HOURS NEEDED (pain). Max Daily Amount: 6 Tabs. 90 Tab 0 Pregabalin (LYRICA) 200 MG Oral Cap Take 1 Cap by mouth THREE TIMES DAILY. Max Daily Amount: 600 mg. 90 Cap 3 ramipril (ALTACE) 2.5 MG Oral Cap TAKE ONE CAPSULE BY MOUTH EVERY MORNING 90 Cap 1 simvastatin (ZOCOR) 40 MG Oral Tab TAKE ONE TABLET BY MOUTH AT BEDTIME 30 Tab 5 WIXELA INHUB 500-50 MCG/DOSE Inhalation AEROSOL POWDER, BREATH ACTIVATED INHALE ONE PUFF BY MOUTH TWICE A DAY 1 Inhaler 5 No current facility-administered medications on file as of 02/12/2019. Allergies Allergen Reactions Ambien Other SLEEP WALK Cat Respiratory Reaction Iodine Sulfa Drugs Cross Reactors Respiratory Reaction Sulfacetamide Sodium Objective: BP 114/72 (BP Location: Right arm, Patient Position: Sitting) Pulse 102 Temp 99.4 F (37.4 C) (Tympanic) Ht 5' 6" (1.676 m) Wt 207 lb (93.9 kg) SpO2 97% BMI 33.41 kg/m2 General appearance: alert, in no distress. MRI of Thoracic spine: Again seen is hardware artifact which appears to extend within T1. The hardware itself is not well visualized. There is increased hyperintense signal within the right aspect of T7, T8 and T9 on sagittal inversion recovery sequences consistent with acute edema. There is corresponding loss of T1 signal at these locations. There is no definitive vertebral body height loss. There is prominence of the right paraspinal musculature seen on axial imaging at these locations as well. Vertebral body alignment is maintained. There are small disc osteophyte complexes seen posteriorly at multiple levels of the lower thoracic spine resulting in very minimal central canal compression. Spinal cord signal remains within normal. IMPRESSION 1. Hyperintense signal within the right aspect of T7, T8 and T9 with prominence of right paraspinal musculature and no definitive vertebral body height loss. These findings are likely most consistent with insufficiency fractures with associated right paraspinal hematoma. Spinal cord signal is within normal. Would recommend follow-up MRI thoracic spine imaging to include IV contrast to ensure that there is no underlying mass. MRI of Thoracic spine with contrast was done, but not read yet Patient advised on tests results ICD-9-CM ICD-10-CM 1. Midline thoracic back pain, unspecified chronicity 724.1 M54.6 2. Age-related osteoporosis with current pathological fracture, initial encounter 733.10 M80.00XA XRDEXA SCAN 1 OR MORE SITES 733.01 REFER TO NEUROSURGERY Patient Instructions 1. Schedule appointment with neurosurgeon 2. Schedule Dexa Author: Hannah Cade MD documented in this encounter Plan of Treatment Date Type Specialty Care Team Description 02/24/2019 Office Visit Neurosurgery Mamadou Urbina MD [address] [place] [address] [phone] 02/27/2019 Ancillary Procedure Radiology 05/26/2019 Lab Internal Medicine Name Type Priority Associated Diagnoses Order Schedule XR DEXA SCAN 1 OR Imaging Routine Age-related osteoporosis Expected: 2018, MORE SITES with current pathological Expires: 07/31/2021 fracture, initial encounter Name Type Priority Associated Diagnoses Order Schedule REFER TO NEUROSURGERY Referral Routine Midline thoracic back Expected: 09/2018, pain, unspecified Expires: 02/13/2020 chronicity Health Maintenance Due Date Last Done Comments [...] Type Problems Progress Blood Pressure Blood Pressure 114/72 No Rayo, < 140/90 (02/12/2019 Hannah, 3:34 PM EST) Note: This is an individualized treatment (blood pressure) goal for Estela Aguilar: Displayed above (on the left) is your goal for blood pressure control. Your most recent blood pressure is also shown above, on the right. You should try to achieve blood pressures that are lower than your goal listed above (on the left). Smoking Cessation COPD No Hannah Cade MD Note: This is an individualized treatment (COPD) goal for Estela Aguilar: Quit smoking immediately! Your provider has information and resources that may help you to quit. Glycohemoglobin A1c < 7.0 Diabetes 6.4 (11/28/2018 12:28 No Hannah Cade, PM EDT) Note: This is an individualized treatment (diabetes control, HgbA1C) goal for Estela Aguilar: Displayed above is your progress towards your HgbA1C goal. Your goal is shown above (on the left); your most recent HgbA1C is shown on the right. Note that lower numbers are better. Weight loss vs. 18 mo Lifestyle 10.4 (02/12/2019 3:34 PM No Hannah Cade MD max (lbs) >= 10 EST) Note: This is an individualized lifestyle goal for Estela Aguilar: Your body mass index (BMI) is more than 30. You should lose weight. A reasonable starting goal is to lose 10 pounds. Displayed above is how many pounds you have lost thus far towards your 10 pound weight loss goal. Keep immunizations current Lifestyle No Hannah Cade MD Note: This is an individualized lifestyle goal for Estela Aguilar: Please be sure to keep up-to-date on recommended immunizations. For example, this would include a yearly influenza vaccine. Immunization status can be seen by looking at the Health Maintenance sections of your [employer], Plan of Care, and any After Visit Summaries. Take all prescribed medications as Self-management No Hannah Cade MD directed Note: This is an individualized [...] filedocumented in this encounter Visit Diagnoses Diagnosis Midline thoracic back pain, unspecified chronicity - Primary Age-related osteoporosis with current pathological fracture, initial encounter documented in this encounter Guarantor Name Account Type Relation to Date of Phone Billing Address Patient Estela Aguilar Personal/Family 1960 [address] [facility] (Home) [place], [place] [phone] (Work) documented as of this encounter
--- OUTSIDE RECORDS SUMMARY | 2019-02-22 15:31 | XMS REPORT | Summary of Care ---
:1960 Author Organization [facility] Address [address] [facility] [place] [address] Care Team Providers Name Role Phone Hannah Cade Primary Care Provider Reason for Referral MRI/CAT/PET Scan (Routine) Status Reason Specialty Diagnoses / Referred By Referred To Procedures Contact Contact Pending Review Diagnoses Midline thoracic back pain, unspecified chronicity Rayo, Procedures CT SPINE THORACIC MD Hannah [address] [place] [address] Reason for Visit Reason Comments Follow Up to COPD exacerbation, and back pain, pt also stated throat hurts thinks the thrush has moved to her throat Encounter Details Date Type Department Care Team Description 01/01/2019 Office Visit Jaun Cade, Midline thoracic back pain , unspecified chronicity (Primary Dx); Practice MD Hannah Flu vaccine need; [address] [place] [address] COPD exacerbation (HCC); [place] [address] [place] [address] Oral candidosis [phone] Allergies Active Allergy Reactions Severity Noted Date Comments Ambien Other 02/13/2012 SLEEP WALK Cat Respiratory Reaction 02/13/2012 Iodine 11/28/2010 Sulfa Drugs Cross Reactors Respiratory Reaction 02/13/2012 Sulfacetamide Sodium 11/28/2010 documented as of this encounter (statuses as of 01/01/2019) Medications Medication Sig Dispensed Refills Start Date [...] Solution Pen-injector Additional information Patient taking differently: 20 units in the morning and 50 units at bed time , Indications: 15 am and 45 pm, Reported on 12/26/2018 2:56 PM COMBIVENT RESPIMAT INHALE ONE PUFF BY 3 Inhaler 1 09/16/2018 Active 20-100 MCG/ACT MOUTH EVERY 6 Inhalation Aero Soln HOURS ramipril (ALTACE) 2.5 TAKE ONE CAPSULE 90 Cap 1 09/18/2018 Active MG Oral Cap BY MOUTH EVERY MORNING Pregabalin (LYRICA) Take 1 Cap by 90 Cap 3 10/01/2018 Active 200 MG Oral Cap mouth THREE TIMES DAILY. Max Daily Amount: 600 mg. docusate sodium Take 1 Cap by 60 Cap 5 10/01/2018 Active (COLACE) 100 MG Oral mouth TWICE DAILY. CapIndications: Constipation, unspecified constipation type metFORMIN (GLUCOPHAGE) TAKE ONE TABLET BY 60 Tab 5 11/07/2018 Active 500 MG Oral Tab MOUTH TWICE A DAY fluticasone-salmeterol INHALE ONE PUFF BY 1 Inhaler 1 11/13/2018 Active diskus (ADVAIR) 500-50 MOUTH TWICE A DAY MCG/DOSE Inhalation AEROSOL POWDER, BREATH ACTIVATEDIndications: COPD exacerbation (HCC) guaifenesin (MUCINEX) Take 1 Tab by 60 [...] not MEALS. Freestyle apply Kit Lite Meter levofloxacin Take 1 Tab by 10 Tab 1 12/26/2018 Active (LEVAQUIN) 500 MG Oral mouth DAILY 0700 Tab on Empty Stomach. OXYcodone-acetaminophe Take 1 Tab by 90 Tab 0 12/30/2018 Active n (PERCOCET) 5-325 MG mouth EVERY EIGHT Oral TabIndications: HOURS NEEDED DDD (degenerative disc (pain). Max Daily disease), lumbar Amount: 3 Tabs. fluconazole (DIFLUCAN Take 1 Tab by 5 Tab 0 01/01/2019 Active 100 MG) 100 MG Oral mouth DAILY. Tab nicotine (NICORETTE) 2 Place 1 Each 30 Each 1 09/04/2018 Discontinued MG Mouth/Throat Gum between lower 9 cheek and gum NEEDED (craving). documented as of this encounter (statuses as of 01/01/2019) Active Problems Problem Noted Date Urinary retention 06/13/2017 Chronic respiratory failure with hypoxia 06/13/2017 Acute UTI 06/13/2017 Sepsis due to pneumonia 06/12/2017 Multifocal pneumonia 06/11/2017 COPD with asthma Fibromyalgia GERD (gastroesophageal reflux disease) Hyperlipidemia Hypertension Psychiatric disorder Tobacco use disorder Type II diabetes mellitus Overview: non-insulin dependent documented as of this encounter (statuses as of 01/01/2019) Resolved Problems Problem Noted Date Resolved Date Metabolic encephalopathy 06/13/2017 06/13/2017 Acute on chronic respiratory failure with hypoxia 06/12/2017 06/13/2017 long-term resident 06/12/2017 02/15/2018 Right leg pain 10/02/2012 06/12/2017 Overview: Normal EMG/NCV Degeneration of lumbar or lumbosacral intervertebral disc 10/02/20122017 Degenerative lumbar spinal stenosis 10/02/2012 06/12/[address] 10/02/2012 06/12/2017 Unspecified nonpsychotic mental disorder 10/02/2012 06/12/2017 Chronic back pain 10/02/2012 06/12/2017 Peripheral neuropathy 06/13/2017 documented as of this encounter (statuses as of 01/01/2019) Immunizations Name Administration Dates Next Due Hepatitis [...] Sign Reading Time Taken Comments Blood Pressure 126/64 01/01/2019 11:16 AM EDT Pulse 123 01/01/2019 11:16 AM EDT Temperature 37.4 01/01/2019 11:16 AM EDT C (99.3 F) Respiratory Rate - - Oxygen Saturation 94% 01/01/2019 11:16 AM EDT Inhaled Oxygen Concentration - - Weight 96.8 kg (213 lb 8 oz) 01/01/2019 11:16 AM EDT Height 167.6 cm (5' 6") 01/01/2019 11:16 AM EDT Body Mass Index 34.46 01/01/2019 11:16 AM EDT documented in this encounter Patient Instructions Patient InstructionsHannah Cade MD - 01/01/2019 11:[address] scan of Thoracis spine and ribs 2. Take Diflucan 100 mg once a day for 5 day 3. Follow up after the test and as needed documented in this encounter Progress Notes Hannah Cade MD - 01/01/2019 11:20 AM EDT PATIENT: Estela Aguilar : 1960 DATE OF SERVICE: 01/01/2019 Patient comes follow up COPD exacerbation Reduced cough on Levaquin Continues to complain of sore throat, pain with swallowing Treated for Trash with Nystatin with some improvement, but now the symptoms are back Continues to complains of Thoracic back pain referring to the RF ribs, increasing with cough, movement Past Medical History: Diagnosis Date Bipolar affective disorder (HCC) COPD with asthma (HCC) Fibromyalgia GERD (gastroesophageal reflux disease) Hyperlipidemia Schizophrenia (HCC) Type II diabetes mellitus (HCC) non-insulin dependent Outpatient Medications as of 01/01/2019 Medication Sig Dispense Refill albuterol (PROVENTIL, VENTOLIN) [...] 1 Device 0 Blood Glucose Monitoring Suppl (D-CARE GLUCOMETER) w/Device [...] mg by mouth DAILY.) 60 Cap 0 fluticasone-salmeterol diskus (ADVAIR) 500-50 MCG/DOSE Inhalation AEROSOL POWDER, BREATH ACTIVATED INHALE ONE PUFF BY MOUTH TWICE A DAY 1 Inhaler 1 Glucose Blood In Vitro Strip 1 Strip [...] units at bed time (Patient taking differently: 20 units in the morning and 50 units at bed time Indications: 15 am and 45 pm) 3 Device 5 Insulin Pen Needle (PEN [...] by mouth TWICE DAILY. 60 Tab 0 levofloxacin (LEVAQUIN) 500 MG Oral Tab Take 1 Tab by mouth DAILY 0700 on Empty Stomach. 10 Tab 1 LISPRO insulin, RAPID - Acting, (ADMELOG) 100 [...] MOUTH TWICE A DAY 60 Tab 5 OXYcodone-acetaminophen (PERCOCET) 5-325 MG Oral Tab Take 1 Tab by mouth EVERY EIGHT HOURS ASNEEDED (pain). Max Daily Amount: 3 Tabs. 90 Tab 0 Pregabalin (LYRICA) 200 MG Oral Cap Take 1 Cap by mouth THREE TIMES DAILY. Max Daily Amount: 600 mg. 90 Cap 3 ramipril (ALTACE) 2.5 MG Oral Cap TAKE ONE CAPSULE BY MOUTH EVERY MORNING 90 Cap 1 simvastatin (ZOCOR) 40 MG Oral Tab TAKE ONE TABLET BY MOUTH AT BEDTIME 30 Tab 5 No current facility-administered medications on file as of 01/01/2019. BP 126/64 (BP Location: Left arm, Patient Position: Sitting) | Pulse (!) 123 | Temp 99.3 F (37.4 C) | Ht 5' 6" (1.676 m) | Wt 213 lb 8 oz (96.8 kg ) | SpO2 94% | BMI 34.46 kg/m General appearance: alert, and anxious. Oropharyngeal exam - erythematous mucosa. Chest: bilaterally reduced air entry, bilateral rhonchi. CVS exam: regular rhythm, tachycardia Back exam: tenderness in mid and low Thoracic spine ICD-9-CM ICD-10-CM 1. Midline thoracic back pain, unspecified chronicity 724.[address] SPINE THORACIC 2. Flu vaccine need V04.81 Z23 [place] FLU VACCINE PRES FREE 6MOS+ 3. COPD exacerbation (HCC) 491.21 J44.1 4. Oral candidosis 112.0 B37.0 Patient Instructions 1. Schedule CT scan of Thoracis spine and ribs 2. Take Diflucan 100 mg once a day for 5 day 3. Follow up after the test and as needed Author: Hannah Cade MD 01/01/2019 12:05 documented in this encounter Plan of Treatment Date Type Specialty Care Team Description 05/26/2019 Lab Internal Medicine Name Type Priority Associated Diagnoses Order Schedule CT SPINE THORACIC Imaging Routine Midline thoracic back pain, Expected: , unspecified chronicity Expires: 01/01/2020 Health Maintenance Due Date Last Done Comments HEPATITIS C SCREENING 2001 COLONOSCOPY SCREENING 12/16/2011 ZOSTER IMMUNIZATION SERIES 12/16/2011 (1 of 2) INFLUENZA VACCINE (#1) 2018 01/08/2018, 05/23/2017 FOOT EXAM 03/14/2019 03/14/2018, 03/14/2018 MAMMOGRAM (SCREENING) 03/14/2019 03/14/2018, 06/22/2017 HEMOGLOBIN A1C 05/31/2019 11/28/2018, 05/30/2018, 02/20/2018, Additional history exists DEPRESSION SCREENING 09/05/2019 09/04/2018 PNEUMOCOCCAL 0-64 YRS (1 of 09/17/2019 03/15/2016 Postponed from 1 - PPSV23) 05/10/2016 (Other) LIPID DISORDER SCREENING 11/29/2019 11/28/2018, 06/28/2018, 02/20/2018 Diabetic Eye Exam 12/05/2020 12/05/2018 MENINGOCOCCAL VACCINE IMM Aged Out 05/23/2017 No longer eligible based on patient's age to complete this topic HPV IMMUNIZATION SERIES Aged Out No longer eligible based on patient's age to complete this topic documented as of this encounter Goals Goal Patient Goal Associated Recent Patient-Stated? Author Type Problems Progress Blood Pressure Blood Pressure 126/64 No Rayo, < 140/90 (01/01/2019 Hannah, 11:16 AM EDT) Note: This is an individualized treatment (blood pressure) goal for Estela Aguilar: Displayed above (on the left) is your goal for blood pressure control. Your most recent blood pressure is also shown above, on the right. You should try to achieve blood pressures that are lower than your goal listed above (on the left). Glycohemoglobin A1c < 7.0 Diabetes 6.4 (11/28/2018 12:28 Hannah Layne PM EDT) Note: This is an individualized treatment (diabetes control, HgbA1C) goal for Estela Aguilar: Displayed above is your progress towards your HgbA1C goal. Your goal is shown above (on the left); your most recent HgbA1C is shown on the right. Note that lower numbers are better. Weight loss vs. 18 mo Lifestyle 3.9 (01/01/2019 11:16 AM No Hannah Cade MD max (lbs) >= 10 EDT) Note: This is an individualized lifestyle goal [...] is an individualized lifestyle goal for Estela Jeff: Please be sure to keep up-to-date on [...] thoracic back pain, unspecified chronicity - Primary Flu vaccine need Need for prophylactic vaccination and inoculation against influenza COPD exacerbation (HCC) Obstructive chronic bronchitis with exacerbation Oral candidosis Candidiasis of mouth documented in this encounter Guarantor Name Account Type Relation to Date of Phone Billing Address Patient Estela Aguilar Personal/Family 1960 [address] (Home) [place], [place] [phone] (Work) documented as of this encounter
--- OUTSIDE RECORDS SUMMARY | 2019-02-22 15:31 | XMS REPORT | Summary of Care ---
:1960 Author Organization [facility] Address [address] [facility] [place] [address] Care Team Providers Name Role Phone Hannah Cade MD Primary Care Provider Reason for Visit Reason Comments Follow Up 2wk COPD with asthma, pt c/o cough and ribs and middle of back hurt pain is barable when isnt coughing pt stated has right ear ache and has had fever for 4 days Encounter Details Date Type Department Care Team Description 12/26/2018 Office Visit [facility] Rayo, COPD exacerbation (HCC) ( Primary Dx); Practice MD Hannah Type 2 diabetes mellitus with nephropathy, with long-term current use of insulin (FORMERLY [facility]) [address] [place] [address] [place] [address] [phone] Allergies Active Allergy Reactions Severity Noted Date Comments Kulwinder Other 02/13/2012 SLEEP WALK Cat Respiratory Reaction 02/13/2012 Iodine 11/28/2010 Sulfa Drugs Cross Reactors Respiratory Reaction 02/13/2012 Sulfacetamide Sodium 11/28/2010 documented as of this encounter (statuses as of 12/26/2018) Medications Medication Sig Dispensed Refills Start Date [...] 45 pm, Reported on 12/26/2018 2:56 PM nicotine (NICORETTE) Place 1 Each 30 Each 1 09/04/2018 Active 2 MG Mouth/Throat Gum between lower cheek and gum NEEDED (craving). COMBIVENT RESPIMAT INHALE ONE PUFF BY 3 Inhaler 1 09/16/2018 Active 20-100 MCG/ACT MOUTH EVERY 6 HOURS Inhalation Aero Soln ramipril (ALTACE) 2.5 TAKE ONE CAPSULE BY 90 Cap 1 09/18/2018 Active MG Oral Cap MOUTH EVERY MORNING Pregabalin (LYRICA) Take 1 Cap by mouth 90 Cap 3 10/01/2018 Active 200 MG Oral Cap THREE TIMES DAILY. Max Daily Amount: 600 mg. docusate sodium Take 1 Cap by mouth 60 Cap 5 10/01/2018 Active (COLACE) 100 MG Oral TWICE DAILY. CapIndications: Constipation, unspecified constipation type metFORMIN TAKE ONE TABLET BY 60 Tab 5 11/07/2018 Active (GLUCOPHAGE) 500 MG MOUTH TWICE A DAY Oral Tab fluticasone-salmetero INHALE ONE PUFF BY 1 Inhaler 1 11/13/2018 Active l diskus (ADVAIR) MOUTH TWICE A DAY 500-50 MCG/DOSE Inhalation AEROSOL POWDER, BREATH ACTIVATEDIndications: COPD exacerbation (HCC) guaifenesin (MUCINEX) Take 1 Tab by mouth 60 Tab 5 11/15/2018 Active 600 MG Oral TABLET SR EVERY TWELVE HOURS. 12 HRIndications: COPD exacerbation (HCC) Blood Glucose Monitor 1 Device by Does 1 Device 0 12/10/2018 Active Software Does not not apply route apply Device DIRECTED. Insurance preferred. E11.9 Glucose Blood In 1 Strip by In Vitro 200 Strip 5 12/10/2018 Active Vitro Strip route TWICE DAILY. Insurance preferred - E11.9 Blood Glucose 1 Kit by Does not 1 Kit 0 12/18/2018 Active Monitoring Suppl apply route TWO (D-CARE GLUCOMETER) TIMES DAILY BEFORE w/Device Does not MEALS. Freestyle apply Kit Lite Meter OXYcodone-acetaminoph Take 1 Tab by mouth 90 Tab 0 12/20/2018 Active en (PERCOCET) 5-325 EVERY EIGHT HOURS MG Oral NEEDED (pain). TabIndications: DDD Max Daily Amount: 3 (degenerative disc Tabs. disease), lumbar levofloxacin Take 1 Tab by mouth 10 Tab 1 12/26/2018 Active (LEVAQUIN) 500 MG DAILY 0700 on Empty Oral Tab Stomach. nicotine transdermal Place 1 Patch onto 30 Patch 0 09/04/2018 Discontinued patch-daily skin DAILY. 9 (NICODERM) 21 MG/24HR Transdermal PATCH 24 HR benzonatate (TESSALON Take 1 Cap by mouth 60 Cap 0 11/15/2018 Discontinued PERLES) 100 MG Oral THREE TIMES DAILY 9 CapIndications: Cough NEEDED for cough. fluconazole (DIFLUCAN Take 1 Tab by mouth 6 Tab 0 11/28/2018 Discontinued 100 MG) 100 MG Oral DIRECTED. 200 mg 9 Tab day one, than 100 mg PO QD for 4 more days nystatin (MYCOSTATIN) Take 5 mL by mouth 280 mL 0 11/28/2018 Discontinued [id number] UNIT/ML FOUR TIMES DAILY. 9 Mouth/Throat Swish and swallow Suspension documented as of this encounter (statuses as of 12/26/2018) Active Problems Problem Noted Date Urinary retention 06/13/2017 Chronic respiratory failure with hypoxia 06/13/2017 Acute UTI 06/13/2017 Sepsis due to pneumonia 06/12/2017 Multifocal pneumonia 06/11/2017 COPD with asthma Fibromyalgia GERD (gastroesophageal reflux disease) Hyperlipidemia Hypertension Psychiatric disorder Tobacco use disorder Type II diabetes mellitus Overview: non-insulin dependent documented as of this encounter (statuses as of 12/26/2018) Resolved Problems Problem Noted Date Resolved Date Metabolic encephalopathy 06/13/2017 06/13/2017 Acute on chronic respiratory failure with hypoxia 06/12/2017 06/13/2017 senior care resident 06/12/2017 02/15/2018 Right leg pain 10/02/2012 06/12/2017 Overview: Normal EMG/NCV Degeneration of lumbar or lumbosacral intervertebral disc 10/02/20122017 Degenerative lumbar spinal stenosis 10/02/2012 06/12/[address] 10/02/2012 06/12/2017 Unspecified nonpsychotic mental disorder 10/02/2012 06/12/2017 Chronic back pain 10/02/2012 06/12/2017 Peripheral neuropathy 06/13/2017 documented as of this encounter (statuses as of 12/26/2018) Immunizations Name Administration Dates Next Due Hepatitis B Vaccine 08/13/2017, 07/11/2017 Influenza (IM) Preservative Free 01/08/2018, 05/23/2017 MENINGOCOCCAL POLYSACCHARIDE VACCINE(MENOMUNE) 05/23/2017 Pneumococcal Conjugate Vaccine 03/15/2016 Tuberculin Skin Test 06/01/2017, 05/18/2017 documented as of this encounter Social History Tobacco Use Types Packs/Day Years Used Date Former Smoker 0.5 35 Started: 11/20/2015 Smokeless Tobacco: Never Used [...] Sign Reading Time Taken Comments Blood Pressure 130/70 12/26/2018 2:41 PM EDT Pulse 95 12/26/2018 2:41 PM EDT Temperature 36.9 12/26/2018 2:41 PM EDT C (98.5 F) Respiratory Rate - - Oxygen Saturation 95% 12/26/2018 2:41 PM EDT Inhaled Oxygen Concentration - - Weight 97.3 kg (214 lb 6.4 oz) 12/26/2018 2:41 PM EDT Height - - Body Mass Index 34.61 11/28/2018 10:45 AM EDT documented in this encounter Patient Instructions Patient InstructionsHannah Cade MD - 12/26/2018 2:40 PM EDT1. Take Levaquin 500 mg once a day 2. Continue Mucinex 3. Schedule fasting blood tests in 5 months 4. Follow up in 1 week and as needed documented in this encounter Progress Notes Hannah Cade MD - 12/26/2018 2:40 PM EDT PATIENT: Estela Aguilar : 1960 DATE OF SERVICE: 12/26/2018 Subjective SUBJECTIVE: Estela Aguilar is a 58-y.o. female who presents for evaluation of ear pain right , nasal congestion, productive cough, rhinorrhea (clear in color) and sneezing. Symptoms began several days ago and are gradually worsening since that time. Also complains of R hemithorax shooting pain going around the chest, increasing with respiration andcoughing Past history is significant for chronic obstructive pulmonary disease and tobacco abuse. Past Medical History: Diagnosis Date Bipolar affective disorder (HCC) COPD with asthma (HCC) Fibromyalgia GERD (gastroesophageal reflux disease) Hyperlipidemia Schizophrenia (HCC) Type II diabetes mellitus (HCC) non-insulin dependent Family History Problem Relation Age of Onset Cancer Mother pancreous/stomach GI Mother cirrhosis Diabetes Father Seizures Father epilepsy Seizures Sister Current Outpatient Medications Medication Sig albuterol (PROVENTIL, [...] 30 mg by mouth DAILY.) fluticasone-salmeterol diskus (ADVAIR) 500-50 MCG/DOSE Inhalation AEROSOL POWDER, BREATH ACTIVATED INHALE ONE PUFF BY MOUTH TWICE A DAY Glucose Blood In Vitro Strip 1 Strip [...] time Indications: 15 am and 45 pm) Insulin Pen Needle (PEN NEEDLES) 31G X [...] Take 1 Tab by mouth TWICE DAILY. levofloxacin (LEVAQUIN) 500 MG Oral Tab Take 1 Tab by mouth DAILY 0700 on Empty Stomach. LISPRO insulin, RAPID - Acting, (ADMELOG) 100 UNIT/ML Subcutaneous Solution Inject beneath the skin THREE TIMES DAILY BEFORE MEALS. loratadine (CLARITIN,ALAVERT) 10 MG Oral Tab Take 1 Tab by mouth DAILY. Lurasidone HCl (LATUDA) 120 MG Oral Tab Take 120 mg by mouth DAILY. metFORMIN (GLUCOPHAGE) 500 MG Oral Tab TAKE ONE TABLET BY MOUTH TWICE A DAY nicotine (NICORETTE) 2 MG Mouth/Throat Gum Place 1 Each between lower cheek and gum NEEDED(craving). OXYcodone-acetaminophen (PERCOCET) 5-325 MG Oral Tab Take 1 Tab by mouth EVERY EIGHT HOURS ASNEEDED (pain). Max Daily Amount: 3 Tabs. Pregabalin (LYRICA) 200 MG Oral Cap Take 1 Cap by mouth THREE TIMES DAILY. Max Daily Amount: 600 mg. ramipril (ALTACE) 2.5 MG Oral Cap TAKE ONE CAPSULE BY MOUTH EVERY MORNING simvastatin (ZOCOR) 40 MG Oral Tab TAKE ONE TABLET BY MOUTH AT BEDTIME No current facility-administered medications for this visit. Allergies Allergen Reactions Ambien Other SLEEP WALK Cat Respiratory Reaction Iodine Sulfa Drugs Cross Reactors Respiratory Reaction Sulfacetamide Sodium Social History Socioeconomic History Marital status: Spouse [...] Not on file Tobacco Use Smoking status: Former Smoker Packs/day: 0.50 Years: 35.00 Pack years: 17.50 Start date: 11/20/2015 Smokeless tobacco: Never Used Substance and Sexual Activity Alcohol use: No Comment: ho alcohol abuse Drug use: No Sexual activity: Not on file Lifestyle Physical activity: Days per week: Not on file Minutes per session: Not on file Stress: Not on file Relationships Social connections: Talks on phone: Not on file Gets together: Not on file Attends mosque service: Not on file Active member of [...] file Social History Narrative Not on file Objective OBJECTIVE: BP 130/70 (BP Location: Left arm, Patient Position: Sitting) | Pulse 95 | Temp 98.5 F (36.9 C) | Wt 214 lb 6.4 oz (97.3 kg) | SpO2 95% | BMI 34.61 kg/m GENERAL: alert, fatigued. HEENT: bilateral tympanic membrane normal without fluid or infection, neck without nodes, pharynx erythematous without exudate, bilateral sinuses are tender and nasal mucosa congested. LUNGS: bilaterally fair air entry, bilateral rhonchi. HEART: regular rate and rhythm, S1, S2 normal, no murmur, click, rub or gallop. HGA1C - good, CMP - low sugar, FLP - good Component Latest Ref Rng & Units 11/28/2018 11/28/2018 11/28/2018 12:28 PM 12:28 PM 12:28 PM Sodium 134 - 145 mmol/L 139 Potassium 3.5 - 5.1 mmol/L 4.3 Chloride 98 - 107 mmol/L 102 CO2 22 - 30 mmol/L 28 Calcium 8.3 - 10.1 mg/dl 9.7 Albumin 3.5 - 5.0 g/dl 4.2 BUN 7 - 17 mg/dl 13 Creatinine 0.7 - 1.2 mg/dl 0.7 Glucose (Lab) 70 - 99 mg/dl 63 (L) Protein,Total 6.3 - 8.2 g/dl 7.6 Total Bilirubin 0.0 - 1.1 MG/DL 0.3 AST 15 - 46 U/L 35 ALT 9 - 52 U/L 29 ALKALINE PHOSPHATASE 40 - 150 U/L 74 eGFR See Interpretation Below ml/min/1.73ml Sq >60 BUN/Creatinine Ratio 6 - 22 RATIO 19 Anion Gap 3 - 11 mmol/L 9 A/G Ratio 0.8 - 2.0 ratio 1.2 Cholestrol <200 mg/dl 146 HDL >50 mg/dl 45 (L) Triglycerides <150 mg/dl 95 LDL Cholesterol <100 MG/DL 82 Cholesterol / HDL Ratio RATIO 3.2 LDL / HDL Ratio 1.8 Non-HDL Cholesterol 0 - 130 MG/DL 101 Glycohemoglobin - POCT <=5.6 % 6.4 (H) Patient advised on tests results ICD-9-CM ICD-10-CM 1. COPD exacerbation (HCC) 491.21 J44.1 2. Type 2 diabetes mellitus with nephropathy, with long-term current use of insulin (HCC) 250.00 E11.9 COMPREHENSIVE METABOLIC PANEL LIPID PROFILE GLYCOHEMOGLOBIN A1C Patient Instructions 1. Take Levaquin 500 mg once a day 2. Continue Mucinex 3. Schedule fasting blood tests in 5 months 4. Follow up in 1 week and as needed Author: Hannah Cade MD 12/26/2018 15:10 documented in this encounter Plan of Treatment Date Type Specialty Care Team Description 01/01/2019 Office Visit Family Practice Hannah Cade MD [address] [place] [address] [phone] 05/26/2019 Lab Internal Medicine Name Type Priority Associated Diagnoses Order Schedule COMPREHENSIVE METABOLIC Lab Routine Type 2 diabetes Expected: 12/26/2018 PANEL mellitus with (Approximate), nephropathy, with Expires: 12/27/2019 long-term current use of insulin (HCC) LIPID PROFILE Lab Routine Type 2 diabetes Expected: 12/26/2018 mellitus with (Approximate), nephropathy, with Expires: 12/27/2019 long-term current use of insulin (HCC) GLYCOHEMOGLOBIN A1C Lab Routine Type 2 diabetes Expected: 12/26/2018 mellitus with (Approximate), nephropathy, with Expires: 12/27/2019 long-term current use of insulin (HCC) Health Maintenance Due Date Last Done Comments [...] Type Problems Progress Blood Pressure Blood Pressure 130/70 No Rayo, < 140/90 (12/26/2018 Hannah, 2:41 PM EDT) Note: This is an individualized [...] better. Weight loss vs. 18 mo Lifestyle 3 (12/26/2018 2:41 PM No Hannah Cade MD max (lbs) [...] filedocumented in this encounter Visit Diagnoses Diagnosis COPD exacerbation (HCC) - Primary Obstructive chronic bronchitis with exacerbation Type 2 diabetes mellitus with nephropathy, with long-term current use of insulin (HCC) documented in this encounter (Home) [place], [place] [phone] (Work) documented as of this encounter
[2019-02-22] MEDS ORDERED: methylPREDNISolone 125 MG* 2 ML VIAL IV ONE (15:54)
[2019-02-22] MEDS ORDERED: Albuterol/Ipratropium NEB.SOL* Albuterol 2.5 MG/Ipratropium 0.5 MG 3 ML INH ONE (15:54)
[2019-02-22] MEDS ORDERED: Ondansetron INJ* 2 MG/ML VIAL IV PRN (17:57)
[2019-02-22] MEDS ORDERED: Acetaminophen TAB* 325 MG PO PRN (17:57)
[2019-02-22] MEDS ORDERED: Dextrose 50% VIAL 50 ml IV PUSH PRN (18:01)
[2019-02-22] MEDS ORDERED: Nicotine Lozenge* mini 4 MG LOZNG.MINI MT PRN (18:05)
[2019-02-22] MEDS: Enoxaparin(*) 40 MG/0.4 ML SYR SUBCUT SCH (20:47)
[2019-02-22] MEDS: Insulin GLARGINE(*) 1 UNITS UNIT SUBCUT SCH (20:50)
[2019-02-22] MEDS: Pregabalin CAP(*) 100 MG PO SCH (20:51)
[2019-02-22] MEDS: metFORMIN* 500 MG TAB PO SCH (20:52)
[2019-02-22] MEDS: DULoxetine DR CAP* 30 MG CAP.DR PO SCH (20:52)
[2019-02-22] MEDS: lamoTRIgine TAB(*) 100 MG PO SCH (20:53)
[2019-02-22] MEDS: Docusate CAP* 100 MG PO SCH (20:53)
[2019-02-22] MEDS: Benztropine TAB* 1 MG PO SCH (20:53)
[2019-02-22] MEDS: guaiFENesin ER TAB 600 MG PO SCH (20:53)
[2019-02-22] MEDS: Atorvastatin* 20 MG TAB PO SCH (20:54)
[2019-02-22] MEDS: Benzonatate CAP* 100 MG PO PRN (20:54)
[2019-02-22] MEDS: Lactated Ringers 1000 ML Bag* 1,000 ML IV SCH (20:56)
[2019-02-22] MEDS ORDERED: guaiFENesin ER TAB 600 MG PO SCH (21:00)
[2019-02-22] MEDS: Insulin LISPRO* 1 UNITS UNIT SUBCUT SCH (21:10)
[2019-02-22 21:36] LABS: Influenza A Molecular NEGATIVE (Negative); Influenza B Molecular NEGATIVE (Negative)
[2019-02-22] MEDS: Albuterol/Ipratropium NEB.SOL* Albuterol 2.5 MG/Ipratropium 0.5 MG 3 ML INH SCH (22:58)
[2019-02-23 03:02] LABS: Urine Bacteria Absent (Absent); Urine Red Blood Cell Absent (Absent); Urine Squamous Epithelial Cell Present (Absent); Urine White Blood Cell Absent (Absent)
[2019-02-23 03:03] LABS: Urine Appearance Clear; Urine Blood Negative (Negative); Urine Color Yellow; Urine Ketones Negative (Negative); Urine Protein 2+(100 mg/dL) (Negative); Urine Specific Gravity 1.025 (1.010-1.030); Urine Urobilinogen Negative (Negative)
[2019-02-23 03:04] LABS: Urine Bilirubin Negative (Negative); Urine Glucose Negative (Negative); Urine Nitrite Negative (Negative)
--- NOTE | 2019-02-23 03:35 | HP ---
CC: Dr. Cade * ADMISSION HISTORY AND PHYSICAL: DATE OF ADMISSION: 02/22/19 PRIMARY CARE PROVIDER: Dr. Cade. MY ATTENDING WHILE IN THE HOSPITAL: Dr. Spencer Aguilar.* (DICTATED BY ERICA ABBASI) CHIEF COMPLAINT: Shortness of breath x3 days. HISTORY OF PRESENT ILLNESS: Ms. Aguilar is a 58-year-old female with past medical history significant for COPD with chronic hypoxic respiratory failure, not compliant with oxygen therapy as well as diabetes mellitus type 2; history of PE, no longer on anticoagulation; who presents to the emergency department with 3 days of gradually worsening shortness of breath with associated fevers and chills. The patient states that her fevers have been between 101 and 103 for the last 3 days, but she was taking ibuprofen for this at home, which has been effective in controlling her fevers. The patient states that no one else has been sick. She has been hospitalized 4 times before for respiratory symptoms and feels similar to this, but not for over a year and half. The patient continues to smoke 1 pack daily and per her son has been out frequently walking in the cold with minimal jackets. The patient has not had any recent changes to her medications. The patient has no other recent illness. The patient came into the emergency department today with worsening shortness of breath to the point where she was not able to function at home. The patient denies any abdominal pain, diarrhea. The patient does have some joint pain and muscle aches and pain with urination, but this happens frequently as she has to self-cath several times a day due to urinary retention. She is not quite sure why this is the case. The patient denies any dizziness or chest pain. The patient has been coughing a significant amount, bringing up green sputum with no blood and the patient also notes significant wheezing and very decreased exercise tolerance, also difficulty breathing lying flat, but no lower extremity edema, has no history of heart failure. In the emergency department, the patient was found to be tachycardic, afebrile, tachypneic, hypoxic with borderline low blood pressures, and in the emergency department, the patient was given antibiotics, steroids, and DuoNeb and was referred to the hospitalist service for admission. PAST MEDICAL HISTORY: COPD/asthma, diabetes mellitus type 2, back pain, urinary retention, hyperlipidemia, hypothyroidism, history of PE. PAST SURGICAL HISTORY: Multiple neck and back surgeries, cholecystectomy, appendectomy, hysterectomy, embolization of varicose veins. MEDICATIONS: 1. Simvastatin 40 mg p.o. at bedtime. 2. Ramipril 5 mg p.o. daily. 3. Oxycodone 5/325 one tab p.o. q.8 hours as needed. 4. Pregabalin 200 mg p.o. t.i.d. 5. Multivitamin 1 tab p.o. daily. 6. Loratadine 10 mg p.o. daily. 7. Insulin lispro sliding scale t.i.d. with meals. 8. Lamotrigine 100 mg p.o. b.i.d. 9. Insulin glargine 20 units morning and 50 units nightly. 10. Albuterol/ipratropium 1 puff inhalation q.6 hours as needed. 11. Guaifenesin 600 mg p.o. b.i.d. as needed. 12. Advair 500/50 one puff inhalation b.i.d. 13. Duloxetine 30 mg p.o. b.i.d. 14. Docusate 100 mg p.o. b.i.d. 15. Calcium D 1 tab p.o. daily. 16. Benztropine 1 mg p.o. b.i.d. 17. Vitamin C 500 mg p.o. daily. 18. Albuterol inhaler 1 puff inhalation q.4 hours as needed. 19. Albuterol 2.5 mg inhalation q.4 hours as needed. 20. Metformin 500 mg p.o. b.i.d. 21. Lurasidone 120 mg p.o. daily. ALLERGIES: CAT DANDER, IODINE, SULFA, and ZOLPIDEM. FAMILY HISTORY: The patient's mother of cirrhosis, stomach cancer, and pancreatic cancer. The patient's father of COPD. He ended up dying of pneumonia while in the hospital. The patient had a brother who of colon cancer and a sister who of seizures. Her other siblings are alive and well. SOCIAL HISTORY: The patient still smokes 1 pack a day and has done so for the last 43 years. The patient does not drink alcohol or use illicit drugs. The patient is disabled, used to work as a [employer] in a snf. The patient is and has 5 children. The patient's surrogate decision maker may be her son, Jag Dominguez. REVIEW OF SYSTEMS: A 10-point review of systems was reviewed and is negative except as above in the HPI. PHYSICAL EXAMINATION GENERAL: The patient is a 58-year-old female, who appears older than stated age and sitting in the bed with significantly increased work of breathing. VITAL SIGNS: Temperature 97.9, pulse rate 111, respiratory rate 25, oxygen saturation 98% on 3 L, and blood pressure 90/59. HEENT: Head: Normocephalic, atraumatic. Sclerae anicteric. No conjunctival injection. Nasal mucosa moist. Oral mucosa moist. No pharyngeal erythema, discharge, or exudate. NECK: Supple, nontender. No lymphadenopathy. No carotid bruits auscultated. No JVD. RESPIRATORY: Wheezing and rhonchi throughout. Poor air exchange. Expiratory wheezing throughout. Egophony positive in the right upper lobe. CARDIAC: Tachycardic. No clicks, murmurs, gallops, or rubs. Pulses are 2+ in the bilateral dorsalis pedis, posterior tibial, and radial areas. No bilateral lower extremity edema. No bilateral calf tenderness. ABDOMEN: Soft, nontender, nondistended. Bowel sounds present, normoactive in all 4 quadrants. No hepatosplenomegaly. No abdominal bruits auscultated. No hepatojugular reflux. GENITOURINARY: Suprapubic tenderness. No CVA tenderness. NEUROLOGIC: Cranial nerves II through XII are intact. No focal deficits. Alert and oriented x3. PSYCHIATRIC: Pleasant and cooperative. SKIN: Clean, dry, and intact. No rash. DIAGNOSTIC STUDIES/LAB DATA: White blood cell count 11.0, hemoglobin 14.2, platelet count 163. Sodium 133, potassium 3.5, chloride 101, carbon dioxide 26 , anion gap 6, BUN 15, creatinine 0.71, glucose 117, lactic acid 1.0, calcium 8.6. Bilirubin 0.3, AST 38, ALT 24, alkaline phosphatase 118. Troponin I 0.00. CRP 184. BNP 41. Protein 6.6, albumin 3.3, globulin 3.3. Studies: Chest x-ray read as no acute cardiopulmonary disease. Electrocardiogram shows sinus tachycardia, no ST segment elevation or depression. No hypertrophy or enlargement. Rate of 106, left axis deviation. S - wave is present in the lead I, Q-wave present in lead III with biphasic T- waves. ASSESSMENT AND PLAN: Impression: Ms. Aguilar is a 58-year-old female with past medical history significant for advanced chronic obstructive pulmonary disease, noncompliant with home oxygen with multiple previous admissions for exacerbations, who will be admitted to the hospital for chronic obstructive pulmonary disease exacerbation in association with possible bacterial pneumonia. 1. Acute hypoxic respiratory failure, sepsis, possible pneumonia, chronic obstructive pulmonary disease exacerbation. The patient has acute respiratory failure and meets sepsis criteria with tachycardia, tachypnea, elevated white blood cell count, presumed source being pneumonia. The patient was started on ceftriaxone and azithromycin in the emergency department and this will be continued. The patient had 1 low blood pressure upon arrival to the emergency department and this resolved with 1 L bolus. The patient will be continued on fluids, the patient does not appear overtly fluid overloaded nor does she appear markedly dehydrated, this will only be for blood pressure support. The patient will be started on scheduled inhalers, prednisone 60 mg daily. The patient will have a repeat chest x-ray in the morning to assess for development of infiltrates after fluid resuscitation. Importance of smoking cessation and the possibility of exposure to excessively cold weather exacerbating her chronic obstructive pulmonary disease should be discussed with the patient and reinforced throughout her hospitalization. Though the patient has no infiltrate , given her sepsis and severely elevated CRP, the patient will be treated with antibiotics. These antibiotics may be discontinued in the future if the clinical picture for the bacterial pneumonia becomes less clear. There is a possibility this is related to a viral infection or simply chronic obstructive pulmonary disease exacerbation, though these are less likely. The patient will be continued on triple inhaler therapy, pulmonary toileting, and prednisone 60 mg daily with a plan for 5 days total dosing. Blood cultures have been drawn. 2. Diabetes mellitus type 2. The patient will be continued on metformin, will be continued on her home doses of glargine and lispro sliding scale. Increase in her glargine and possible mealtime insulin will be added based on the patient 's blood sugar readings and these are expected to be needed based on her high- dose prednisone therapy. 3. Hyperlipidemia. Continue the patient's statin. 4. Mood disorder. The patient has not mentioned mood disorder; however, she is on Lamictal, Latuda, and benztropine, these will be continued while in the hospital. 5. Urinary retention. The patient will be allowed to straight cath as she would normally at home. The patient is on several anticholinergic agents through her inhalers as well as her benztropine which may exacerbate her urinary retention and the appropriateness of these on an ongoing basis should be assessed. The patient has not had urinalysis yet. She will be covered with ceftriaxone for possible urinary tract infection; however, this will be confirmed if able. 6. Back pain. Continue the patient's Percocet, duloxetine, and Lyrica. 7. DVT prophylaxis, history of pulmonary embolism. The patient presumably had a provoked pulmonary embolism and she is currently off anticoagulation. The patient will be started on Lovenox subcu at DVT prophylaxis dose as opposed to treatment. The patient does not have signs of pulmonary embolism at this time. If the patient fails to improve, CT of the chest should be considered. 8. FEN. The patient will have a consistent carbohydrate diet and fluids as above. 9. Disposition. The patient will be admitted to the hospital inpatient. Estimated length of stay greater than 2 midnights. TIME SPENT: Approximately 60 minutes was spent on the admission of this patient , 30 of which was spent [id number] with the patient obtaining history and treatment plan. ERICA ABBASI [id number]/BARRY #: [id number] SUSAN
[2019-02-23 04:59] LABS: ABS Lymphocytes 0.9 10^3/ul (1.0-4.8); ABS Monocytes 0.5 10^3/ul (0-0.8); ABS Neutrophils 8.3 10^3/ul (1.5-7.7); Hematocrit 40 % (35-47); Hemoglobin 13.5 g/dL (12.0-16.0); Lymphocyte % 9.3 %; Mean Corpuscular HGB Conc 34 g/dL (31-36); Mean Corpuscular Hemoglobin 32 pg (27-31); Mean Corpuscular Volume 96 fL (80-97); Mean Platelet Volume 9.3 fL (7.4-10.4); Platelet Count 170 10^3/uL (150-450); Red Cell Distribution Width 15 % (10-15); White Blood Count 9.7 10^3/uL (3.5-10.8)
[2019-02-23 05:15] LABS: BUN/Creatinine Ratio 16.5 (8-20); Calcium 8.6 mg/dL (8.6-10.3); EGFR African American 90.8 (>60); Magnesium 1.7 mg/dL (1.9-2.7)
[2019-02-23 06:03] LABS: HIV 4th Generation Nonreactive (Nonreactive)
[2019-02-23] MEDS: Lactated Ringers 1000 ML Bag* 1,000 ML IV SCH ×2 (06:12→17:50)
[2019-02-23 06:48] LABS: Hepatitis C Antibody Reactive (Negative)
[2019-02-23] MEDS: Mometasone/Formoter 200/5 MDI INH SCH ×2 (07:50→07:55)
[2019-02-23] MEDS: Albuterol/Ipratropium NEB.SOL* Albuterol 2.5 MG/Ipratropium 0.5 MG 3 ML INH SCH ×6 (07:56→23:58)
[2019-02-23] MEDS ORDERED: Magnesium Sulfate 2 GM IV* 2 GM/50 ML BAG IVPB ONE (08:39)
[2019-02-23] MEDS: predniSONE TAB* 20 MG PO SCH (08:53)
[2019-02-23] MEDS: Cetirizine* 10 MG TAB PO SCH (08:53)
[2019-02-23] MEDS: lamoTRIgine TAB(*) 100 MG PO SCH ×2 (08:53→19:24)
[2019-02-23] MEDS: Docusate CAP* 100 MG PO SCH ×2 (08:54→19:23)
[2019-02-23] MEDS: DULoxetine DR CAP* 30 MG CAP.DR PO SCH ×2 (08:54→19:24)
[2019-02-23] MEDS: Pregabalin CAP(*) 100 MG PO SCH ×3 (08:54→19:24)
[2019-02-23] MEDS: guaiFENesin ER TAB 600 MG PO SCH ×2 (08:54→19:23)
[2019-02-23] MEDS: metFORMIN* 500 MG TAB PO SCH ×2 (08:54→19:23)
[2019-02-23] MEDS: Benztropine TAB* 1 MG PO SCH ×2 (08:54→19:23)
[2019-02-23] MEDS: Multivitamins/Minerals TAB PO SCH (08:54)
[2019-02-23] MEDS: Nicotine PATCH 21 MG/24 HR* PATCH TRANSDERM SCH (08:55)
[2019-02-23] MEDS: Insulin LISPRO* 1 UNITS UNIT SUBCUT SCH ×4 (08:56→19:27)
[2019-02-23] MEDS: Insulin GLARGINE(*) 1 UNITS UNIT SUBCUT SCH ×2 (08:56→19:27)
[2019-02-23] MEDS ORDERED: Pneumococcal *Vac Polyvalent 0.5 ML VIAL IM ONE (09:00)
[2019-02-23] MEDS: Lurasidone(*) 120 MG TAB PO SCH (09:12)
--- NOTE | 2019-02-23 10:49 | PN ---
Subjective Date of Service: 02/23/19 Interval History: Reports the breathing remains the same, continues to be short of breath at rest , worse with exertion. Denies chest pain. reports non-productive cough. reports chills overnight. Denies abd n/v/d. Family History: Unchanged from Admission Social History: Unchanged from Admission Past Medical History: Unchanged from Admission Objective Active Medications: Acetaminophen (Tylenol Tab*) 650 mg PO Q6H PRN PRN Reason: MILD PAIN or TEMP > 100.4 Albuterol (Ventolin 2.5 Mg/3 Ml Neb.Erika*) 2.5 mg INH Q2H PRN PRN Reason: SOB/WHEEZING Albuterol/Ipratropium (Duoneb (Albuterol 2.5 Mg/Ipratropium 0.5 Mg)) 1 neb INH [id number] AWAKE [facility] Last Admin: 02/23/19 07:58 Dose: 1 neb Atorvastatin Calcium (Lipitor*) 20 mg PO BEDTIME [facility] Last Admin: 02/22/19 20:54 Dose: 20 mg Benzonatate (Tessalon Cap*) 100 mg PO BID PRN PRN Reason: COUGH Last Admin: 02/22/19 20:54 Dose: 100 mg Benztropine Mesylate (Cogentin Tab*) 1 mg PO BID [facility] Last Admin: 02/23/19 08:54 Dose: 1 mg Cetirizine HCl (Zyrtec*) 10 mg PO DAILY [facility] Last Admin: 02/23/19 08:53 Dose: 10 mg Dextrose (Dextrose 50% Vial 50 Ml*) 25 ml IV PUSH .FOR FS < 60 - SS PRN PRN Reason: FS < 60 Docusate Sodium (Colace Cap*) 100 mg PO BID [facility] Last Admin: 02/23/19 08:54 Dose: 100 mg Duloxetine HCl (Cymbalta Cap*) 30 mg PO BID [facility] Last Admin: 02/23/19 08:54 Dose: 30 mg Enoxaparin Sodium (Lovenox(*)) 40 mg SUBCUT Q24H [facility] Last Admin: 02/22/19 20:47 Dose: 40 mg Guaifenesin (Mucinex*) 1,200 mg PO BID [facility] Last Admin: 02/23/19 08:54 Dose: 1,200 mg Azithromycin 250 mg/ Sodium (Chloride) 250 mls @ 250 mls/hr IVPB Q24H [facility] Ceftriaxone Sodium 1 gm/ (Sodium Chloride) 50 mls @ 200 mls/hr IVPB Q24H [facility] Lactated Ringer's (Lactated Ringers 1000 Ml Bag*) 1,000 mls @ 125 mls/hr IV PER RATE [facility] Last Admin: 02/23/19 06:12 Dose: 125 mls/hr Insulin Glargine (Lantus(*)) 20 units SUBCUT QAM [facility] Last Admin: 02/23/19 08:56 Dose: 20 units Insulin Glargine (Lantus(*)) 50 units SUBCUT BEDTIME [facility] Last Admin: 02/22/19 20:50 Dose: 50 units Insulin Human Lispro (Humalog*) 0 units SUBCUT ACHS [facility]; Protocol Last Admin: 02/23/19 08:56 Dose: 6 units Lamotrigine (Lamictal Tab(*)) 100 mg PO BID [facility] Last Admin: 02/23/19 08:53 Dose: 100 mg Lurasidone HCl (Latuda) 120 mg PO DAILY [facility] Last Admin: 02/23/19 09:12 Dose: Not Given Metformin HCl (Glucophage*) 500 mg PO BID [facility] Last Admin: 02/23/19 08:54 Dose: 500 mg Mometasone Furoate/Formoterol Fumar (Dulera 200/5 Mdi*) 2 puff INH BID [facility] Last Admin: 02/23/19 07:55 Dose: Not Given Multivitamins/Minerals (Theragran/Minerals Tab*) 1 tab PO DAILY [facility] Last Admin: 02/23/19 08:54 Dose: 1 tab Nicotine (Nicotine Patch 21 Mg/24 Hr*) 1 patch TRANSDERM DAILY@0800 [facility] Last Admin: 02/23/19 08:55 Dose: 1 patch Nicotine Polacrilex (Nicotine Lozenge Mini) 4 mg MT Q2H PRN PRN Reason: CRAVING Ondansetron HCl (Zofran Inj*) 4 mg IV Q6H PRN PRN Reason: NAUSEA Oxycodone/Acetaminophen (Percocet 5/325 Tab*) 1 tab PO Q8HR PRN PRN Reason: PAIN Prednisone (Deltasone Tab*) 60 mg PO DAILY [facility] Last Admin: 02/23/19 08:53 Dose: 60 mg Pregabalin (Lyrica Cap(*)) 200 mg PO TID [facility] Last Admin: 02/23/19 08:54 Dose: 200 mg Vital Signs - 8 hr 02/23/19 02/23/19 02/23/19 03:15 07:40 07:51 Temperature 97.5 F 97.7 F Pulse Rate 83 88 8 Respiratory 20 20 17 Rate Blood Pressure 115/61 124/61 (mmHg) O2 Sat by Pulse 93 97 98 Oximetry 02/23/19 02/23/19 08:16 08:54 Temperature Pulse Rate Respiratory 20 20 Rate Blood Pressure (mmHg) O2 Sat by Pulse Oximetry Oxygen Devices in Use Now: Nasal Cannula Appearance: mild respiratory distress at rest., alert and oriented Eyes: No Scleral Icterus Ears/Nose/Mouth/Throat: Clear Oropharnyx, Mucous Membranes Moist Neck: NL Appearance and Movements; NL JVP, Trachea Midline Respiratory: Symmetrical Chest Expansion and Respiratory Effort, - - few scattered rhonchi and exp. wheezing t/o bilat. Cardiovascular: NL Sounds; No Murmurs; No JVD, No Edema Abdominal: NL Sounds; No Tenderness; No Distention Extremities: No Edema, No Clubbing, Cyanosis Skin: No Rash or Ulcers Neurological: Alert and Oriented x 3 Nutrition: Taking PO's Result Diagrams: 02/23/19 04:37 02/23/19 04:37 Microbiology and Other Data: Microbiology 02/23/19 02:35 Gram Stain - Final Sputum Expectorated 02/23/19 02:30 Legionella Urinary Antigen - Final Urine Negative Legionella Antigen Streptococcus pneumoniae Ag Screen - Final Negative S. pneumo Antigen Assess/Plan/Problems-Billing Assessment: Ms. Aguilar is a 58 y.o female with hx of COPD dm,hld who presented to the emergency room with increased shortness of breath and cough. - Patient Problems (1) Sepsis with acute hypoxic respiratory failure Current Visit: Yes Status: Acute Code(s): A41.9 - SEPSIS, UNSPECIFIED ORGANISM; R65.20 - SEVERE SEPSIS WITHOUT SEPTIC SHOCK; J96.01 - ACUTE RESPIRATORY FAILURE WITH HYPOXIA SNOMED Code(s): 805077297 Comment: Likely related to copd exacerbation with associated bronchitis - will continue ceftriaxone and azithromycin - continue nebs and inhalers (2) COPD (chronic obstructive pulmonary disease) with acute bronchitis Current Visit: Yes Status: Acute Code(s): J44.0 - CHR OBSTRUCTIVE PULMON DISEASE WITH (ACUTE) LOWER RESP INFCT; J20.9 - ACUTE BRONCHITIS, UNSPECIFIED SNOMED Code(s): 647795247920768 Comment: acute exacerbation with underlying bronchitis - will continue nebs and inhalers - continue ceftriaxone and azithromycin - o2 as need to maintain o2 sats above 92% - will continue prednisone- as continues to have exp wheezing bilat- will consider changing to solumedrol if the patient does not improve (3) HTN (hypertension) Current Visit: Yes Status: Acute Code(s): I10 - ESSENTIAL (PRIMARY) HYPERTENSION SNOMED Code(s): 74165770 Comment: continue ramipril (4) Diabetes mellitus Current Visit: Yes Status: Acute Code(s): E11.9 - TYPE 2 DIABETES MELLITUS WITHOUT COMPLICATIONS SNOMED Code(s): 55329295 Comment: continue lantus , metformin and lispro ss (5) Mood disorder Current Visit: Yes Status: Acute Code(s): F39 - UNSPECIFIED MOOD [AFFECTIVE ] DISORDER SNOMED Code(s): 56988516 Comment: stable will continue cymbalta, latuda, lamictal (6) Urinary retention Current Visit: Yes Status: Acute Code(s): R33.9 - RETENTION OF URINE, UNSPECIFIED SNOMED Code(s): 737335603 Comment: - hx of urianry retention - self caths at home will continue - UA without signs of infection (7) Hepatitis C antibody test positive Current Visit: Yes Status: Acute Code(s): R76.8 - OTHER SPECIFIED ABNORMAL IMMUNOLOGICAL FINDINGS IN SERUM SNOMED Code(s): 443469524 Comment: Hep c antibody - positive - hep c RNA pending (8) DVT prophylaxis Current Visit: Yes Status: Acute Code(s): Z29.9 - ENCOUNTER FOR PROPHYLACTIC MEASURES, UNSPECIFIED SNOMED Code(s): 796390231 Comment: lovenox subq (9) Full code status Current Visit: Yes Status: Acute Code(s): Z78.9 - OTHER SPECIFIED HEALTH STATUS SNOMED Code(s): 778524899 Status and Disposition: inpatient
[2019-02-23] MEDS ORDERED: cefTRIAXone(*) 1 GM in NS 0.9% 50 ML* 50 ML IVPB SCH (16:00)
[2019-02-23] MEDS: Azithromycin IV(*) 250 MG in NS 0.9% 250 ML* 250 ML IVPB SCH (16:12)
[2019-02-23] MEDS: Enoxaparin(*) 40 MG/0.4 ML SYR SUBCUT SCH (17:51)
[2019-02-23] MEDS: Atorvastatin* 20 MG TAB PO SCH (19:24)
[2019-02-24 06:13] LABS: Calcium 8.4 mg/dL (8.6-10.3); EGFR African American 147.1 (>60); EGFR Non-African American 121.5 (>60); Potassium 3.9 mmol/L (3.5-5.0)
[2019-02-24] MEDS: Mometasone/Formoter 200/5 MDI INH SCH ×3 (06:20→19:27)
[2019-02-24] MEDS: Albuterol/Ipratropium NEB.SOL* Albuterol 2.5 MG/Ipratropium 0.5 MG 3 ML INH SCH ×6 (07:24→23:37)
[2019-02-24] MEDS: Insulin LISPRO* 1 UNITS UNIT SUBCUT SCH ×4 (08:54→21:22)
[2019-02-24] MEDS: Nicotine PATCH 21 MG/24 HR* PATCH TRANSDERM SCH (08:59)
[2019-02-24] MEDS: Lurasidone(*) 120 MG TAB PO SCH (08:59)
[2019-02-24] MEDS: Pregabalin CAP(*) 100 MG PO SCH ×3 (09:00→20:53)
[2019-02-24] MEDS: oxyCODONE/Acetamin 5/325 MG* TAB PO PRN ×2 (09:02→18:08)
[2019-02-24] MEDS: guaiFENesin ER TAB 600 MG PO SCH ×2 (09:02→20:53)
[2019-02-24] MEDS: DULoxetine DR CAP* 30 MG CAP.DR PO SCH ×2 (09:02→20:53)
[2019-02-24] MEDS: Benztropine TAB* 1 MG PO SCH ×2 (09:02→20:54)
[2019-02-24] MEDS: predniSONE TAB* 20 MG PO SCH (09:02)
[2019-02-24] MEDS: metFORMIN* 500 MG TAB PO SCH ×2 (09:03→20:53)
[2019-02-24] MEDS: lamoTRIgine TAB(*) 100 MG PO SCH ×2 (09:03→20:53)
[2019-02-24] MEDS: Docusate CAP* 100 MG PO SCH ×2 (09:03→20:54)
[2019-02-24] MEDS: Insulin GLARGINE(*) 1 UNITS UNIT SUBCUT SCH ×2 (09:03→21:23)
[2019-02-24] MEDS: Cetirizine* 10 MG TAB PO SCH (09:03)
[2019-02-24] MEDS: Multivitamins/Minerals TAB PO SCH (09:03)
[2019-02-24] MEDS: Albuterol 2.5 MG/3 ML NEB.SOL* (0.083%) INH PRN (11:42)
[2019-02-24] MEDS: Lactated Ringers 1000 ML Bag* 1,000 ML IV SCH (13:31)
[2019-02-24] MEDS: Azithromycin IV(*) 250 MG in NS 0.9% 250 ML* 250 ML IVPB SCH (16:56)
[2019-02-24] MEDS: Enoxaparin(*) 40 MG/0.4 ML SYR SUBCUT SCH (17:56)
--- NOTE | 2019-02-24 18:17 | PN ---
Subjective Date of Service: 02/24/19 Interval History: patient continue to c/o shortness of breath , worse with exertion. Occasional cough , non productive. Denies fever or chills overnight. Denies abd pain n/v/ d. denies chest Family History: Unchanged from Admission Social History: Unchanged from Admission Past Medical History: Unchanged from Admission Objective Active Medications: Acetaminophen (Tylenol Tab*) 650 mg PO Q6H PRN PRN Reason: MILD PAIN or TEMP > 100.4 Last Admin: 02/23/19 14:34 Dose: 650 mg Albuterol (Ventolin 2.5 Mg/3 Ml Neb.Erika*) 2.5 mg INH Q2H PRN PRN Reason: SOB/WHEEZING Albuterol/Ipratropium (Duoneb (Albuterol 2.5 Mg/Ipratropium 0.5 Mg)) 1 neb INH [id number] AWAKE [facility] Last Admin: 02/24/19 15:17 Dose: 1 neb Atorvastatin Calcium (Lipitor*) 20 mg PO BEDTIME [facility] Last Admin: 02/23/19 19:24 Dose: 20 mg Benzonatate (Tessalon Cap*) 100 mg PO BID PRN PRN Reason: COUGH Last Admin: 02/22/19 20:54 Dose: 100 mg Benztropine Mesylate (Cogentin Tab*) 1 mg PO BID [facility] Last Admin: 02/24/19 09:02 Dose: 1 mg Cetirizine HCl (Zyrtec*) 10 mg PO DAILY [facility] Last Admin: 02/24/19 09:03 Dose: 10 mg Dextrose (Dextrose 50% Vial 50 Ml*) 25 ml IV PUSH .FOR FS < 60 - SS PRN PRN Reason: FS < 60 Docusate Sodium (Colace Cap*) 100 mg PO BID [facility] Last Admin: 02/24/19 09:03 Dose: 100 mg Duloxetine HCl (Cymbalta Cap*) 30 mg PO BID [facility] Last Admin: 02/24/19 09:02 Dose: 30 mg Enoxaparin Sodium (Lovenox(*)) 40 mg SUBCUT Q24H [facility] Last Admin: 02/24/19 17:56 Dose: 40 mg Guaifenesin (Mucinex*) 1,200 mg PO BID [facility] Last Admin: 02/24/19 09:02 Dose: 1,200 mg Azithromycin 250 mg/ Sodium (Chloride) 250 mls @ 250 mls/hr IVPB Q24H [facility] Last Admin: 02/24/19 16:56 Dose: 250 mls/hr Lactated Ringer's (Lactated Ringers 1000 Ml Bag*) 1,000 mls @ 75 mls/hr IV PER RATE [facility] Last Admin: 02/24/19 13:31 Dose: 75 mls/hr Insulin Glargine (Lantus(*)) 20 units SUBCUT QAM [facility] Last Admin: 02/24/19 09:03 Dose: 20 units Insulin Glargine (Lantus(*)) 50 units SUBCUT BEDTIME [facility] Last Admin: 02/23/19 19:27 Dose: 50 units Insulin Human Lispro (Humalog*) 0 units SUBCUT ACHS [facility]; Protocol Last Admin: 02/24/19 17:55 Dose: 6 units Lamotrigine (Lamictal Tab(*)) 100 mg PO BID [facility] Last Admin: 02/24/19 09:03 Dose: 100 mg Lurasidone HCl (Latuda) 120 mg PO DAILY [facility] Last Admin: 02/24/19 08:59 Dose: 120 mg Metformin HCl (Glucophage*) 500 mg PO BID [facility] Last Admin: 02/24/19 09:03 Dose: 500 mg Mometasone Furoate/Formoterol Fumar (Dulera 200/5 Mdi*) 2 puff INH BID [facility] Last Admin: 02/24/19 08:12 Dose: 2 puff Multivitamins/Minerals (Theragran/Minerals Tab*) 1 tab PO DAILY [facility] Last Admin: 02/24/19 09:03 Dose: 1 tab Nicotine (Nicotine Patch 21 Mg/24 Hr*) 1 patch TRANSDERM DAILY@0800 [facility] Last Admin: 02/24/19 08:59 Dose: 1 patch Nicotine Polacrilex (Nicotine Lozenge Mini) 4 mg MT Q2H PRN PRN Reason: CRAVING Ondansetron HCl (Zofran Inj*) 4 mg IV Q6H PRN PRN Reason: NAUSEA Oxycodone/Acetaminophen (Percocet 5/325 Tab*) 1 tab PO Q8HR PRN PRN Reason: PAIN Last Admin: 02/24/19 18:08 Dose: 1 tab Prednisone (Deltasone Tab*) 60 mg PO DAILY [facility] Last Admin: 02/24/19 09:02 Dose: 60 mg Pregabalin (Lyrica Cap(*)) 200 mg PO TID [facility] Last Admin: 02/24/19 14:20 Dose: 200 mg Vital Signs - 8 hr 02/24/19 02/24/19 02/24/19 11:15 11:47 12:13 Temperature 97.4 F Pulse Rate 96 96 Respiratory 22 16 20 Rate Blood Pressure 121/61 (mmHg) O2 Sat by Pulse 96 95 Oximetry 02/24/19 02/24/19 02/24/19 14:20 15:21 16:59 Temperature Pulse Rate 93 Respiratory 20 16 18 Rate Blood Pressure (mmHg) O2 Sat by Pulse 95 Oximetry 02/24/19 18:08 Temperature Pulse Rate Respiratory 18 Rate Blood Pressure (mmHg) O2 Sat by Pulse Oximetry Oxygen Devices in Use Now: Nasal Cannula Result Diagrams: 02/23/19 04:37 02/24/19 05:33 Microbiology and Other Data: Microbiology 02/23/19 02:35 Gram Stain - Final Sputum Expectorated 02/23/19 02:30 Legionella Urinary Antigen - Final Urine Negative Legionella Antigen Streptococcus pneumoniae Ag Screen - Final Negative S. pneumo Antigen Assess/Plan/Problems-Billing Assessment: Ms. Aguilar is a 58 y.o female with hx of COPD dm,hld who presented to the emergency room with increased shortness of breath and cough. - Patient Problems (1) Sepsis with acute hypoxic respiratory failure Current Visit: Yes Status: Acute Code(s): A41.9 - SEPSIS, UNSPECIFIED ORGANISM; R65.20 - SEVERE SEPSIS WITHOUT SEPTIC SHOCK; J96.01 - ACUTE RESPIRATORY FAILURE WITH HYPOXIA SNOMED Code(s): 440063416 Comment: Likely related to copd exacerbation with associated bronchitis - will continue ceftriaxone and azithromycin - continue nebs and inhalers (2) COPD (chronic obstructive pulmonary disease) with acute bronchitis Current Visit: Yes Status: Acute Code(s): J44.0 - CHR OBSTRUCTIVE PULMON DISEASE WITH (ACUTE) LOWER RESP INFCT; J20.9 - ACUTE BRONCHITIS, UNSPECIFIED SNOMED Code(s): 535756862780767 Comment: acute exacerbation with underlying bronchitis - will continue nebs and inhalers - continue ceftriaxone and azithromycin - o2 as need to maintain o2 sats above 92% - will continue prednisone- as continues to have exp wheezing bilat- will consider changing to solumedrol if the patient does not improve (3) HTN (hypertension) Current Visit: Yes Status: Acute Code(s): I10 - ESSENTIAL (PRIMARY) HYPERTENSION SNOMED Code(s): 79304526 Comment: continue ramipril (4) Diabetes mellitus Current Visit: Yes Status: Acute Code(s): E11.9 - TYPE 2 DIABETES MELLITUS WITHOUT COMPLICATIONS SNOMED Code(s): 73718636 Comment: continue lantus , metformin and lispro ss (5) Mood disorder Current Visit: Yes Status: Acute Code(s): F39 - UNSPECIFIED MOOD [AFFECTIVE ] DISORDER SNOMED Code(s): 08301507 Comment: stable will continue cymbalta, latuda, lamictal (6) Urinary retention Current Visit: Yes Status: Acute Code(s): R33.9 - RETENTION OF URINE, UNSPECIFIED SNOMED Code(s): 206314752 Comment: - hx of urianry retention - self caths at home will continue - UA without signs of infection (7) Hepatitis C antibody test positive Current Visit: Yes Status: Acute Code(s): R76.8 - OTHER SPECIFIED ABNORMAL IMMUNOLOGICAL FINDINGS IN SERUM SNOMED Code(s): 540961936 Comment: Hep c antibody - positive - hep c RNA pending (8) DVT prophylaxis Current Visit: Yes Status: Acute Code(s): Z29.9 - ENCOUNTER FOR PROPHYLACTIC MEASURES, UNSPECIFIED SNOMED Code(s): 057611294 Comment: marine nagel (9) Full code status Current Visit: Yes Status: Acute Code(s): Z78.9 - OTHER SPECIFIED HEALTH STATUS SNOMED Code(s): 338302578 Status and Disposition: inpatient
[2019-02-24] MEDS: Benzonatate CAP* 100 MG PO PRN (20:53)
[2019-02-24] MEDS: Atorvastatin* 20 MG TAB PO SCH (20:53)
[2019-02-24] MEDS ORDERED: oxyCODONE/Acetamin 5/325 MG* TAB PO ONE (21:20)
[2019-02-25] MEDS: Albuterol/Ipratropium NEB.SOL* Albuterol 2.5 MG/Ipratropium 0.5 MG 3 ML INH SCH ×5 (03:25→20:22)
[2019-02-25] MEDS: Mometasone/Formoter 200/5 MDI INH SCH ×4 (07:43→20:19)
[2019-02-25] MEDS: Lactated Ringers 1000 ML Bag* 1,000 ML IV SCH ×2 (07:59→17:33)
[2019-02-25] MEDS: Lurasidone(*) 120 MG TAB PO SCH (08:02)
[2019-02-25] MEDS: Cetirizine* 10 MG TAB PO SCH (08:02)
[2019-02-25] MEDS: Nicotine PATCH 21 MG/24 HR* PATCH TRANSDERM SCH (08:02)
[2019-02-25] MEDS: guaiFENesin ER TAB 600 MG PO SCH ×2 (08:02→22:14)
[2019-02-25] MEDS: Pregabalin CAP(*) 100 MG PO SCH ×4 (08:02→22:13)
[2019-02-25] MEDS: DULoxetine DR CAP* 30 MG CAP.DR PO SCH ×2 (08:02→22:14)
[2019-02-25] MEDS: lamoTRIgine TAB(*) 100 MG PO SCH ×2 (08:02→22:14)
[2019-02-25] MEDS: Benztropine TAB* 1 MG PO SCH ×2 (08:02→22:14)
[2019-02-25] MEDS: Multivitamins/Minerals TAB PO SCH (08:02)
[2019-02-25] MEDS: Docusate CAP* 100 MG PO SCH ×2 (08:03→22:14)
[2019-02-25] MEDS: metFORMIN* 500 MG TAB PO SCH ×2 (08:03→22:14)
[2019-02-25] MEDS: predniSONE TAB* 20 MG PO SCH (08:03)
[2019-02-25] MEDS: Insulin LISPRO* 1 UNITS UNIT SUBCUT SCH ×4 (08:35→22:15)
[2019-02-25] MEDS: Insulin GLARGINE(*) 1 UNITS UNIT SUBCUT SCH ×2 (08:36→22:15)
[2019-02-25] MEDS: oxyCODONE/Acetamin 5/325 MG* TAB PO PRN (14:54)
[2019-02-25] MEDS: Azithromycin IV(*) 250 MG in NS 0.9% 250 ML* 250 ML IVPB SCH (15:38)
--- NOTE | 2019-02-25 16:11 | PN ---
Subjective Date of Service: 02/25/19 Interval History: Patient remains tachypneic worse with exertion, continues with bilat exp wheezes , improving slowly. Walking o2 saturation on room air was 86%. , walking o2 saturation on 2 liters NC was 91%. Patient continues to c/o severe shortness of breath, continues to require oxygen to maintain o2 saturation above 92%. Denies fever or chills, denies chest pain. Denies and pain n/v/d. Family History: Unchanged from Admission Social History: Unchanged from Admission Past Medical History: Unchanged from Admission Objective Active Medications: Acetaminophen (Tylenol Tab*) 650 mg PO Q6H PRN PRN Reason: MILD PAIN or TEMP > 100.4 Last Admin: 02/23/19 14:34 Dose: 650 mg Albuterol (Ventolin 2.5 Mg/3 Ml Neb.Erika*) 2.5 mg INH Q2H PRN PRN Reason: SOB/WHEEZING Albuterol/Ipratropium (Duoneb (Albuterol 2.5 Mg/Ipratropium 0.5 Mg)) 1 neb INH [id number] AWAKE [facility] Last Admin: 02/25/19 15:05 Dose: 1 neb Atorvastatin Calcium (Lipitor*) 20 mg PO BEDTIME [facility] Last Admin: 02/24/19 20:53 Dose: 20 mg Benzonatate (Tessalon Cap*) 100 mg PO BID PRN PRN Reason: COUGH Last Admin: 02/24/19 20:53 Dose: 100 mg Benztropine Mesylate (Cogentin Tab*) 1 mg PO BID [facility] Last Admin: 02/25/19 08:02 Dose: 1 mg Cetirizine HCl (Zyrtec*) 10 mg PO DAILY [facility] Last Admin: 02/25/19 08:02 Dose: 10 mg Dextrose (Dextrose 50% Vial 50 Ml*) 25 ml IV PUSH .FOR FS < 60 - SS PRN PRN Reason: FS < 60 Docusate Sodium (Colace Cap*) 100 mg PO BID [facility] Last Admin: 02/25/19 08:03 Dose: 100 mg Duloxetine HCl (Cymbalta Cap*) 30 mg PO BID [facility] Last Admin: 02/25/19 08:02 Dose: 30 mg Enoxaparin Sodium (Lovenox(*)) 40 mg SUBCUT Q24H [facility] Last Admin: 02/24/19 17:56 Dose: 40 mg Guaifenesin (Mucinex*) 1,200 mg PO BID [facility] Last Admin: 02/25/19 08:02 Dose: 1,200 mg Azithromycin 250 mg/ Sodium (Chloride) 250 mls @ 250 mls/hr IVPB Q24H [facility] Last Admin: 02/25/19 15:38 Dose: 250 mls/hr Lactated Ringer's (Lactated Ringers 1000 Ml Bag*) 1,000 mls @ 75 mls/hr IV PER RATE [facility] Last Admin: 02/25/19 07:59 Dose: 75 mls/hr Insulin Glargine (Lantus(*)) 20 units SUBCUT QAM [facility] Last Admin: 02/25/19 08:36 Dose: 20 units Insulin Glargine (Lantus(*)) 50 units SUBCUT BEDTIME [facility] Last Admin: 02/24/19 21:23 Dose: 50 units Insulin Human Lispro (Humalog*) 0 units SUBCUT ACHS [facility]; Protocol Last Admin: 02/25/19 14:16 Dose: Not Given Lamotrigine (Lamictal Tab(*)) 100 mg PO BID [facility] Last Admin: 02/25/19 08:02 Dose: 100 mg Lurasidone HCl (Latuda) 120 mg PO DAILY [facility] Last Admin: 02/25/19 08:02 Dose: 120 mg Metformin HCl (Glucophage*) 500 mg PO BID [facility] Last Admin: 02/25/19 08:03 Dose: 500 mg Mometasone Furoate/Formoterol Fumar (Dulera 200/5 Mdi*) 2 puff INH BID [facility] Last Admin: 02/25/19 11:16 Dose: 2 puff Multivitamins/Minerals (Theragran/Minerals Tab*) 1 tab PO DAILY [facility] Last Admin: 02/25/19 08:02 Dose: 1 tab Nicotine (Nicotine Patch 21 Mg/24 Hr*) 1 patch TRANSDERM DAILY@0800 [facility] Last Admin: 02/25/19 08:02 Dose: 1 patch Nicotine Polacrilex (Nicotine Lozenge Mini) 4 mg MT Q2H PRN PRN Reason: CRAVING Ondansetron HCl (Zofran Inj*) 4 mg IV Q6H PRN PRN Reason: NAUSEA Oxycodone/Acetaminophen (Percocet 5/325 Tab*) 1 tab PO Q8HR PRN PRN Reason: PAIN Last Admin: 02/25/19 14:54 Dose: 1 tab Prednisone (Deltasone Tab*) 60 mg PO DAILY [facility] Last Admin: 02/25/19 08:03 Dose: 60 mg Pregabalin (Lyrica Cap(*)) 200 mg PO TID [facility] Last Admin: 02/25/19 14:55 Dose: 200 mg Vital Signs - 8 hr 02/25/19 02/25/19 02/25/19 09:24 09:25 11:15 Temperature 98.4 F Pulse Rate 85 Respiratory 18 20 Rate Blood Pressure 137/70 (mmHg) O2 Sat by Pulse 92 95 Oximetry 02/25/19 02/25/19 02/25/19 11:17 14:54 14:55 Temperature Pulse Rate 87 Respiratory 18 20 20 Rate Blood Pressure (mmHg) O2 Sat by Pulse 96 Oximetry 02/25/19 15:07 Temperature Pulse Rate 88 Respiratory 16 Rate Blood Pressure (mmHg) O2 Sat by Pulse 97 Oximetry Oxygen Devices in Use Now: Nasal Cannula Appearance: appears comfortable, alert and oriented x 3 Eyes: No Scleral Icterus Ears/Nose/Mouth/Throat: Clear Oropharnyx, Mucous Membranes Moist Neck: NL Appearance and Movements; NL JVP, Trachea Midline Respiratory: Symmetrical Chest Expansion and Respiratory Effort, - - exp. wheezes t/o bilat Cardiovascular: NL Sounds; No Murmurs; No JVD, No Edema Abdominal: NL Sounds; No Tenderness; No Distention Extremities: No Edema, No Clubbing, Cyanosis Skin: No Rash or Ulcers Neurological: Alert and Oriented x 3 Nutrition: Taking PO's Result Diagrams: 02/23/19 04:37 02/24/19 05:33 Microbiology and Other Data: Microbiology 02/23/19 02:35 Gram Stain - Final Sputum Expectorated 02/23/19 02:30 Legionella Urinary Antigen - Final Urine Negative Legionella Antigen Streptococcus pneumoniae Ag Screen - Final Negative S. pneumo Antigen Assess/Plan/Problems-Billing Assessment: Ms. Aguilar is a 58 y.o female with hx of COPD dm,hld who presented to the emergency room with increased shortness of breath and cough. - Patient Problems (1) Sepsis with acute hypoxic respiratory failure Current Visit: Yes Status: Acute Code(s): A41.9 - SEPSIS, UNSPECIFIED ORGANISM; R65.20 - SEVERE SEPSIS WITHOUT SEPTIC SHOCK; J96.01 - ACUTE RESPIRATORY FAILURE WITH HYPOXIA SNOMED Code(s): 231901175 Comment: sepsis resolved Likely related to copd exacerbation with underlying bronchitis - will continue azithromycin switch to PO tomorrow for last dose - continue nebs and inhalers - prednisone at 60mg , will likely need a taper at discharge - will decrease to 50 mg starting tomorrow (2) COPD (chronic obstructive pulmonary disease) with acute bronchitis Current Visit: Yes Status: Acute Code(s): J44.0 - CHR OBSTRUCTIVE PULMON DISEASE WITH (ACUTE) LOWER RESP INFCT; J20.9 - ACUTE BRONCHITIS, UNSPECIFIED SNOMED Code(s): 738006292090576 Comment: acute exacerbation with underlying bronchitis - will continue nebs and inhalers - continue azithromycin - o2 as need to maintain o2 sats above 92% - will continue prednisone- as continues to have exp wheezing bilat- improving slowly, may need taper at discharge - walking o2 sat on RA was 86%- setting up home o2 (3) HTN (hypertension) Current Visit: Yes Status: Acute Code(s): I10 - ESSENTIAL (PRIMARY) HYPERTENSION SNOMED Code(s): 08825141 Comment: continue ramipril (4) Diabetes mellitus Current Visit: Yes Status: Acute Code(s): E11.9 - TYPE 2 DIABETES MELLITUS WITHOUT COMPLICATIONS SNOMED Code(s): 20165851 Comment: continue lantus , metformin and lispro ss (5) Mood disorder Current Visit: Yes Status: Acute Code(s): F39 - UNSPECIFIED MOOD [AFFECTIVE ] DISORDER SNOMED Code(s): 03535004 Comment: stable will continue cymbalta, latuda, lamictal (6) Urinary retention Current Visit: Yes Status: Acute Code(s): R33.9 - RETENTION OF URINE, UNSPECIFIED SNOMED Code(s): 064193133 Comment: - hx of urianry retention - self caths at home will continue - UA without signs of infection (7) Hepatitis C antibody test positive Current Visit: Yes Status: Acute Code(s): R76.8 - OTHER SPECIFIED ABNORMAL IMMUNOLOGICAL FINDINGS IN SERUM SNOMED Code(s): 409932097 Comment: Hep c antibody - positive - hep c RNA pending (8) DVT prophylaxis Current Visit: Yes Status: Acute Code(s): Z29.9 - ENCOUNTER FOR PROPHYLACTIC MEASURES, UNSPECIFIED SNOMED Code(s): 518743617 Comment: lovenox subq (9) Full code status Current Visit: Yes Status: Acute Code(s): Z78.9 - OTHER SPECIFIED HEALTH STATUS SNOMED Code(s): 288876326 Status and Disposition: inpatient- improving slowly , will need home o2 at discharge ,
[2019-02-25] MEDS: Enoxaparin(*) 40 MG/0.4 ML SYR SUBCUT SCH (17:31)
[2019-02-25] MEDS: Albuterol 2.5 MG/3 ML NEB.SOL* (0.083%) INH PRN (20:19)
[2019-02-25] MEDS: Atorvastatin* 20 MG TAB PO SCH (22:14)
[2019-02-26] MEDS: Albuterol/Ipratropium NEB.SOL* Albuterol 2.5 MG/Ipratropium 0.5 MG 3 ML INH SCH ×4 (01:23→12:54)
[2019-02-26] MEDS: Lactated Ringers 1000 ML Bag* 1,000 ML IV SCH (05:16)
[2019-02-26 05:38] LABS: Hematocrit 38 % (35-47); Hemoglobin 13.2 g/dL (12.0-16.0); Mean Corpuscular HGB Conc 35 g/dL (31-36); Mean Corpuscular Hemoglobin 33 pg (27-31); Mean Corpuscular Volume 95 fL (80-97); Mean Platelet Volume 8.6 fL (7.4-10.4); Platelet Count 237 10^3/uL (150-450); Red Blood Count 3.99 10^6 /uL (3.70-4.87); Red Cell Distribution Width 15 % (10-15); White Blood Count 9.2 10^3/uL (3.5-10.8)
[2019-02-26 06:01] LABS: Calcium 8.6 mg/dL (8.6-10.3); EGFR African American 153.9 (>60); EGFR Non-African American 127.2 (>60); Potassium 3.5 mmol/L (3.5-5.0)
[2019-02-26 06:04] LABS: ABS Monocytes 0.9 10^3/ul (0-0.8); ABS Neutrophils 5.2 10^3/ul (1.5-7.7); Eosinophil % 0.4 %; Lymphocyte % 32.6 %
[2019-02-26] MEDS: Mometasone/Formoter 200/5 MDI INH SCH (07:29)
[2019-02-26] MEDS: Insulin LISPRO* 1 UNITS UNIT SUBCUT SCH ×4 (07:51→21:40)
[2019-02-26] MEDS: Lurasidone(*) 120 MG TAB PO SCH (09:41)
[2019-02-26] MEDS: predniSONE TAB* 50 MG PO SCH (09:43)
[2019-02-26] MEDS: metFORMIN* 500 MG TAB PO SCH ×2 (09:43→21:39)
[2019-02-26] MEDS: lamoTRIgine TAB(*) 100 MG PO SCH ×2 (09:43→21:40)
[2019-02-26] MEDS: Multivitamins/Minerals TAB PO SCH (09:44)
[2019-02-26] MEDS: Docusate CAP* 100 MG PO SCH ×2 (09:44→21:39)
[2019-02-26] MEDS: Benztropine TAB* 1 MG PO SCH ×2 (09:44→21:39)
[2019-02-26] MEDS: Pregabalin CAP(*) 100 MG PO SCH ×3 (09:45→21:37)
[2019-02-26] MEDS: DULoxetine DR CAP* 30 MG CAP.DR PO SCH ×2 (09:45→21:40)
[2019-02-26] MEDS: guaiFENesin ER TAB 600 MG PO SCH ×2 (09:45→21:38)
[2019-02-26] MEDS: Cetirizine* 10 MG TAB PO SCH (09:46)
[2019-02-26] MEDS: Nicotine PATCH 21 MG/24 HR* PATCH TRANSDERM SCH (09:47)
[2019-02-26] MEDS: Insulin GLARGINE(*) 1 UNITS UNIT SUBCUT SCH ×2 (09:48→21:41)
[2019-02-26] MEDS ORDERED: Azithromycin TAB* 250 MG PO ONE (12:00)
--- NOTE | 2019-02-26 13:18 | PN ---
Subjective Date of Service: 02/26/19 Interval History: Ms. Aguilar is feeling a littler better today. She is still SOB at rest, worse with exertion. She would like to walk more, but staff has been busy. Ambulating to the bathroom is difficult d/t SOB. She is fearful to return home. Denies CP. No concerns from nursing. Patient ambulated without oxygen, sat dropped to 92% on RA. Family History: Unchanged from Admission Social History: Unchanged from Admission Past Medical History: Unchanged from Admission Objective Active Medications: Acetaminophen (Tylenol Tab*) 650 mg PO Q6H PRN MILD PAIN or TEMP > 100.4 Albuterol (Ventolin 2.5 Mg/3 Ml Neb.Erika*) 2.5 mg INH Q2H PRN SOB/WHEEZING Albuterol/Ipratropium (Duoneb (Albuterol 2.5 Mg/Ipratropium 0.5 Mg)) 1 neb INH [id number] AWAKE [facility] Atorvastatin Calcium (Lipitor*) 20 mg PO BEDTIME [facility] Benzonatate (Tessalon Cap*) 100 mg PO BID PRN COUGH Benztropine Mesylate (Cogentin Tab*) 1 mg PO BID [facility] Cetirizine HCl (Zyrtec*) 10 mg PO DAILY [facility] Dextrose (Dextrose 50% Vial 50 Ml*) 25 ml IV PUSH .FOR FS < 60 - SS PRN FS < 60 Docusate Sodium (Colace Cap*) 100 mg PO BID [facility] Duloxetine HCl (Cymbalta Cap*) 30 mg PO BID [facility] Enoxaparin Sodium (Lovenox(*)) 40 mg SUBCUT Q24H [facility] Guaifenesin (Mucinex*) 1,200 mg PO BID [facility] Insulin Glargine (Lantus(*)) 20 units SUBCUT QAM [facility] Insulin Glargine (Lantus(*)) 50 units SUBCUT BEDTIME [facility] Insulin Human Lispro (Humalog*) 0 units SUBCUT ACHS [facility]; Protocol Lamotrigine (Lamictal Tab(*)) 100 mg PO BID [facility] Lurasidone HCl (Latuda) 120 mg PO DAILY [facility] Metformin HCl (Glucophage*) 500 mg PO BID [facility] Mometasone Furoate/Formoterol Fumar (Dulera 200/5 Mdi*) 2 puff INH BID [facility] Multivitamins/Minerals (Theragran/Minerals Tab*) 1 tab PO DAILY [facility] Nicotine (Nicotine Patch 21 Mg/24 Hr*) 1 patch TRANSDERM DAILY@0800 [facility] Nicotine Polacrilex (Nicotine Lozenge Mini) 4 mg MT Q2H PRN CRAVING Ondansetron HCl (Zofran Inj*) 4 mg IV Q6H PRN NAUSEA Oxycodone/Acetaminophen (Percocet 5/325 Tab*) 1 tab PO Q8HR PRN PAIN Prednisone (Deltasone Tab*) 50 mg PO DAILY [facility] Pregabalin (Lyrica Cap(*)) 200 mg PO TID [facility] Vital Signs - 8 hr 02/26/19 02/26/19 02/26/19 08:00 08:06 09:16 Temperature 98.0 F 97.1 F Pulse Rate 81 81 Respiratory 18 22 18 Rate Blood Pressure 123/62 119/59 (mmHg) O2 Sat by Pulse 100 99 Oximetry 02/26/19 02/26/19 02/26/19 09:45 10:54 12:25 Temperature 97.2 F Pulse Rate 86 Respiratory 20 20 18 Rate Blood Pressure 130/72 (mmHg) O2 Sat by Pulse 93 Oximetry 02/26/19 12:55 Temperature Pulse Rate 88 Respiratory 18 Rate Blood Pressure (mmHg) O2 Sat by Pulse 96 Oximetry Appearance: Middle-aged female sitting in bed in NAD Ears/Nose/Mouth/Throat: Mucous Membranes Moist Neck: NL Appearance and Movements; NL JVP, Trachea Midline Respiratory: Symmetrical Chest Expansion and Respiratory Effort, - - Expiratory wheezing L side, scattered crackles bilaterally Cardiovascular: NL Sounds; No Murmurs; No JVD, RRR Abdominal: NL Sounds; No Tenderness; No Distention Extremities: No Edema Neurological: Alert and Oriented x 3 Lines/Tubes/Other Access: Clean, Dry and Intact Peripheral IV Nutrition: Taking PO's Result Diagrams: 02/26/19 05:17 02/26/19 05:17 Assess/Plan/Problems-Billing Assessment: Ms. Aguilar is a 58 yo F with PMH of COPD, DM2, HLD; who presented to the emergency room with increased shortness of breath and cough, found to have a COPD exacerbation. - Patient Problems (1) COPD (chronic obstructive pulmonary disease) with acute bronchitis Code(s): J44.0 - CHR OBSTRUCTIVE PULMON DISEASE WITH (ACUTE) LOWER RESP INFCT; J20.9 - ACUTE BRONCHITIS, UNSPECIFIED Comment: - Acute exacerbation with underlying bronchitis - Continue expiratory wheezing, improved on the right - Now weaned off oxygen, saturating well on RA at rest and with ambulation - Continue azithromycin (day 4/5), nebs, Tessalon, Mucinex, Dulera, prednisone (2) Acute respiratory failure with hypoxia Code(s): J96.01 - ACUTE RESPIRATORY FAILURE WITH HYPOXIA Comment: - Secondary to COPD exacerbation - Now maintaining sats >90% on RA - Plan as above (3) Sepsis Comment: - Resolved - Met criteria on admission with tachycardia and tachypnea; source is COPD exacerbation (4) Hepatitis C antibody test positive Code(s): R76.8 - OTHER SPECIFIED ABNORMAL IMMUNOLOGICAL FINDINGS IN SERUM Comment: - Positive antibody with negative RNA (5) HTN (hypertension) Code(s): I10 - ESSENTIAL (PRIMARY) HYPERTENSION Comment: - Normotensive - Resume ramipril (6) Diabetes mellitus Code(s): E11.9 - TYPE 2 DIABETES MELLITUS WITHOUT COMPLICATIONS Comment: - Continue Lantus, Lispro SS, metformin (7) Tobacco dependence Code(s): F17.200 - NICOTINE DEPENDENCE, UNSPECIFIED, UNCOMPLICATED Comment: - Encourage cessation; patient is motivated to quit - Continue nicotine replacement (8) Mood disorder Code(s): F39 - UNSPECIFIED MOOD [AFFECTIVE] DISORDER Comment: - Continue duloxetine, Latuda, Lamictal (9) Urinary retention Code(s): R33.9 - RETENTION OF URINE, UNSPECIFIED Comment: - History of retention - No evidence of UTI - Continue home self cath schedule (10) DVT prophylaxis Code(s): Z29.9 - ENCOUNTER FOR PROPHYLACTIC MEASURES, UNSPECIFIED Comment: - Lovenox (11) Full code status Code(s): Z78.9 - OTHER SPECIFIED HEALTH STATUS Comment: Status and Disposition: Inpatient. Anticipate d/c home tomorrow. Attending: Dale Booth
[2019-02-26] MEDS: oxyCODONE/Acetamin 5/325 MG* TAB PO PRN (15:21)
[2019-02-26] MEDS: Enoxaparin(*) 40 MG/0.4 ML SYR SUBCUT SCH (18:04)
[2019-02-26] MEDS: Atorvastatin* 20 MG TAB PO SCH (21:39)
[2019-02-27] MEDS: Albuterol/Ipratropium NEB.SOL* Albuterol 2.5 MG/Ipratropium 0.5 MG 3 ML INH SCH ×3 (05:58→09:30)
[2019-02-27] MEDS: Mometasone/Formoter 200/5 MDI INH SCH ×2 (06:00→09:30)
[2019-02-27] MEDS: Nicotine PATCH 21 MG/24 HR* PATCH TRANSDERM SCH (08:40)
[2019-02-27] MEDS: Pregabalin CAP(*) 100 MG PO SCH (08:41)
[2019-02-27] MEDS: DULoxetine DR CAP* 30 MG CAP.DR PO SCH (08:42)
[2019-02-27] MEDS: Benztropine TAB* 1 MG PO SCH (08:42)
[2019-02-27] MEDS: Docusate CAP* 100 MG PO SCH (08:42)
[2019-02-27] MEDS: metFORMIN* 500 MG TAB PO SCH (08:43)
[2019-02-27] MEDS: guaiFENesin ER TAB 600 MG PO SCH (08:43)
[2019-02-27] MEDS: lamoTRIgine TAB(*) 100 MG PO SCH (08:43)
[2019-02-27] MEDS: Lurasidone(*) 120 MG TAB PO SCH (08:43)
[2019-02-27] MEDS: Multivitamins/Minerals TAB PO SCH (08:43)
[2019-02-27] MEDS: predniSONE TAB* 50 MG PO SCH (08:43)
[2019-02-27] MEDS: oxyCODONE/Acetamin 5/325 MG* TAB PO PRN (08:43)
[2019-02-27] MEDS: Cetirizine* 10 MG TAB PO SCH (08:43)
[2019-02-27] MEDS: Insulin LISPRO* 1 UNITS UNIT SUBCUT SCH (08:49)
[2019-02-27] MEDS ORDERED: Ramipril CAP* 5 MG PO SCH (09:00)
[2019-02-27] MEDS ORDERED: Azithromycin TAB* 250 MG PO SCH (09:00)
[2019-02-27] MEDS ORDERED: Albuterol/Ipratropium NEB.SOL* Albuterol 2.5 MG/Ipratropium 0.5 MG 3 ML INH PRN (09:31)
[2019-02-27] MEDS: Insulin GLARGINE(*) 1 UNITS UNIT SUBCUT SCH (11:47)
[2019-02-27 11:49] VITALS: BP 114/64
--- NOTE | 2019-02-28 00:12 | DS ---
CC: Dr. Hannah Cade * DISCHARGE SUMMARY: DATE OF ADMISSION: 02/22/19 DATE OF DISCHARGE: 02/27/19 PRIMARY CARE PROVIDER: Dr. Hannah Cade. ATTENDING PHYSICIAN: Dr. Dale Booth.* (DICTATED BY CHAPIS PLASCENCIA NP) PRIMARY DIAGNOSES: 1. Chronic obstructive pulmonary disease exacerbation. 2. Acute bronchitis. 3. Acute hypoxic respiratory failure. 4. Sepsis. SECONDARY DIAGNOSES: 1. Hypertension. 2. Diabetes mellitus. 3. Mood disorder. 4. Chronic urinary retention. STUDIES WHILE IN THE HOSPITAL: 1. Chest x-ray on 02/22/19, reads as no radiographic evidence of acute cardiopulmonary disease. 2. EKG on 02/22/19, shows sinus tachycardia with a rate of 106. No significant ST changes. 3. Chest x-ray on 02/23/19, reads as no radiographic evidence of acute cardiopulmonary disease. HISTORY OF PRESENT ILLNESS AND HOSPITAL COURSE: Ms. Aguilar is a 58-year-old female with past medical history of COPD, asthma, diabetes mellitus type 2, chronic urinary retention, hyperlipidemia, hypothyroidism, and pulmonary embolism, who presented to the emergency room on 02/22/19 with complaints of shortness of breath. Please see the history and physical by ERICA Smith, for complete summary of the events leading up to this hospitalization. In short , the patient reported worsening shortness of breath over the past 3 days with associated fever and chills. She is a current smoker smoking 1 pack per day. In the emergency room, she was noted to be hypoxic on room air requiring 2 L of oxygen to maintain saturations in the 90s. She was also noted to be tachycardic and tachypneic, therefore meeting sepsis criteria with source suspected to be an acute bronchitis causing a COPD exacerbation. She was admitted by the hospitalist service. The patient was started on prednisone and azithromycin. She was noted to have a significantly elevated CRP of 184. No evidence of fluid overload. Tachycardia and tachypnea resolved with antibiotics. Ultimately, she did complete 5 days of azithromycin. She was able to be weaned off oxygen and is able to maintain saturations greater than 90% while ambulating on room air at this point. Of note, the patient was noted to have a positive hepatitis B antibody with undetectable hepatitis PC ANALYST. This was not new for the patient and she is aware of previously positive antibody results. The patient's sputum culture did grow normal abdiel as well as Staph aureus, which is suspected to be contamination as the patient has improved on azithromycin and there was no evidence of pneumonia. Today, the patient reports feeling well and would like to go home. PHYSICAL EXAMINATION: On exam, she is alert and oriented x4. She has no focal neurologic deficits. Heart has a regular rate and rhythm without murmurs, rubs or gallops. Lungs are clear but diminished to auscultation without rhonchi, wheezes, or rales. There is no edema. Physical exam is otherwise benign. Ms. Aguilar is stable for discharge today. Most recent vitals are as follows: Temp 98.7, heart rate 101, respiratory rate 18, oxygen saturation 97% on room air, blood pressure 114/64. DISCHARGE MEDICATIONS: New medication: Prednisone taper (40 mg for 2 days, then 30 mg for 2 days, then 20 mg for 2 days, then 10 mg for 2 days. Changed medications: 1. Glargine 40 units subcu at bedtime (previously was 50 units). Continued medications: 1. Albuterol neb 1 neb q.4 hours p.r.n. wheezing. 2. Albuterol MDI 1 puff q.4 hours p.r.n. wheezing. 3. Combivent Respimat 1 puff q.6 hours. 4. Ascorbic acid 500 mg p.o. daily. 5. Benztropine 1 mg p.o. b.i.d. 6. Calcium 600 plus vitamin D 1 tab p.o. daily. 7. Docusate 100 mg p.o. b.i.d. 8. Duloxetine 30 p.o. b.i.d. 9. Advair 500/50 one puff b.i.d. 10. Mucinex 600 mg p.o. b.i.d. p.r.n. congestion. 11. Glargine 20 units subcu in the morning. 12. Lispro subcu sliding scale a.c. (resume home sliding scale). 13. Lamictal 100 mg p.o. b.i.d. 14. Loratadine 10 mg p.o. daily. 15. Latuda 120 mg p.o. daily. 16. Metformin 500 mg p.o. b.i.d. 17. Multivitamin 1 tab p.o. daily. 18. Percocet 5/325 one tab p.o. q.8 hours p.r.n. pain. 19. Lyrica 200 mg p.o. t.i.d. 20. Ramipril 5 mg p.o. daily. 21. Simvastatin 40 mg p.o. at bedtime. DISCHARGE PLAN: Ms. Aguilar will be discharged home. Activity will be as tolerated. Diet will be diabetic. Medications are as noted above. The patient will need to complete an 8-day prednisone taper as described above. Bedtime Lantus dosing has been decreased due to some morning hypoglycemia while here in the hospital, though I suspect she is likely not hypoglycemic at home due to difference in diet, though decreasing the insulin I think is reasonable at this time. She can continue her other usual medications as noted above. The patient does not qualify for home oxygen and does not need to wear any oxygen going forward. She will need to follow up with her primary care provider and she has an appointment on 03/05/19 at 11 a.m. She should return to the emergency room or nearest hospital for new or worsening of symptoms, shortness of breath, lightheadedness, dizziness, chest discomfort, high fevers, chills, night sweats, loss of consciousness, or any other worrisome signs or symptoms. DISCHARGE CONDITION: Stable. DISCHARGE DISPOSITION: Home. This is a summarized report of a complex medical history and hospital stay. For further details, please see the entire medical record. TIME SPENT: Approximately 45 minutes was spent on this discharge. CHAPIS PLASCENCIA NP [id number]/CPS #: [id number] SUSAN
== END 2019-02-27 11:40 | disposition home or self-care (01) | DRG 720 ==
LOC: ED 13:58 → MED 17:57
PROVIDERS: ADMIT Internal Medicine; ATTEND Internal Medicine
DX: A41.9 Sepsis, unspecified organism (principal); J96.21 Acute and chronic respiratory failure with hypoxia; J44.1 Chronic obstructive pulmonary disease with (acute) exacerbation; J44.0 Chronic obstructive pulmonary disease with (acute) lower respiratory infection; F17.210 Nicotine dependence, cigarettes, uncomplicated; M54.9 Dorsalgia, unspecified; I25.10 Atherosclerotic heart disease of native coronary artery without angina pectoris; R76.8 Other specified abnormal immunological findings in serum; J20.9 Acute bronchitis, unspecified; I10 Essential (primary) hypertension; E11.9 Type 2 diabetes mellitus without complications; F39 Unspecified mood [affective] disorder; R33.9 Retention of urine, unspecified; E78.5 Hyperlipidemia, unspecified; E03.9 Hypothyroidism, unspecified; Z86.711 Personal history of pulmonary embolism; Z79.51 Long term (current) use of inhaled steroids; Z79.4 Long term (current) use of insulin; Z79.899 Other long term (current) drug therapy; Z91.19 Patient's noncompliance with other medical treatment and regimen; Z88.2 Allergy status to sulfonamides; Z88.8 Allergy status to other drugs, medicaments and biological substances; Z91.041 Radiographic dye allergy status; Z91.048 Other nonmedicinal substance allergy status; Z23 Encounter for immunization
CPT/HCPCS: 36415; 71046; 80048; 80053; 81003; 81015; 83605; 83735; 83880; 84484; 85025; 86140; 86803; 87040; 87070; 87077; 87186; 87205; 87389; 87522; 87899; 90732; 93005; 94640; 96361; 96374; 99284; A9270-GY; J0456; J0696; J1650; J2930; J3475; J7512

== ENCOUNTER 2020-08-17 12:35 | Inpatient (IN) ==
[2020-08-17 13:30] LABS: ABS Basophils 0.1 10^3/ul (0-0.2); ABS Eosinophils 0.2 10^3/ul (0-0.6); ABS Lymphocytes 2.4 10^3/ul (1.0-4.8); ABS Monocytes 0.7 10^3/ul (0-0.8); ABS Neutrophils 5.9 10^3/ul (1.5-7.7); Eosinophil % 1.7 %; Hematocrit 46 % (35-47); Hemoglobin 15.7 g/dL (12.0-16.0); Lymphocyte % 26.1 %; Mean Corpuscular HGB Conc 34 g/dL (31-36); Mean Corpuscular Hemoglobin 33 pg (27-31); Mean Corpuscular Volume 95 fL (80-97); Platelet Count 271 10^3/uL (150-450); Red Cell Distribution Width 15 % (10-15); White Blood Count 9.2 10^3/uL (3.5-10.8)
[2020-08-17 13:40] LABS: INR 1.07 (0.82-1.09)
[2020-08-17 13:50] LABS: Troponin I 0.01 ng/mL (<0.03)
[2020-08-17 13:54] LABS: HCG Pregnancy 6.13 mIU/mL
[2020-08-17 14:03] LABS: Albumin/Globulin Ratio 1.2 (1-3); Calcium 9.4 mg/dL (8.6-10.3); EGFR African American 105.7 (>60); EGFR Non-African American 87.4 (>60); Globulin 3.4 g/dL (2-4); Potassium 4.3 mmol/L (3.5-5.0); Total Bilirubin 0.3 mg/dL (0.2-1.0); Total Protein 7.4 g/dL (6.4-8.9)
[2020-08-17] MEDS ORDERED: Dexamethasone IV 4 MG/ML VIAL 1 ml VIAL IV SLOW PU ONE (15:01)
[2020-08-17] MEDS ORDERED: Albuterol HFA INHALER 8 gm MDI INH ONE (15:02)
[2020-08-17] MEDS ORDERED: Magnesium Hydroxide LIQ 30 ML UDC PO PRN (17:01)
[2020-08-17] MEDS ORDERED: Albuterol/Ipratropium RESP(NF) MDI (Combivent Respimat) INH SCH (18:00)
[2020-08-17] MEDS ORDERED: Albuterol HFA INHALER 8 gm MDI INH PRN (18:27)
[2020-08-17] MEDS: Albuterol/Ipratropium NEB.SOL (2.5/0.5 MG) 3 ML NEB.SOLN INH SCH ×2 (19:40→23:28)
[2020-08-17] MEDS: Insulin GLARGINE 100 un/ml 10 ml VIAL SUBCUT SCH (19:58)
[2020-08-17 20:51] LABS: Urine Benzodiazepine Screen None Detected (None Detect); Urine Cannabinoids Screen None Detected (None Detect); Urine Opiates Screen None Detected (None Detect)
[2020-08-17] MEDS: Enoxaparin 40 MG/0.4 ML SYR SUBCUT SCH (21:50)
[2020-08-17] MEDS: CMCS: Simvastatin 20 mg TAB (NF) PO SCH (21:51)
[2020-08-18] MEDS: Albuterol/Ipratropium NEB.SOL (2.5/0.5 MG) 3 ML NEB.SOLN INH SCH ×2 (03:01→07:10)
[2020-08-18] MEDS: Mometasone/Formoter 200/5 MDI INH SCH ×4 (04:07→20:12)
[2020-08-18 05:41] LABS: ABS Basophils 0.1 10^3/ul (0-0.2); ABS Lymphocytes 1.9 10^3/ul (1.0-4.8); ABS Monocytes 0.7 10^3/ul (0-0.8); ABS Neutrophils 7.4 10^3/ul (1.5-7.7); Eosinophil % 0.4 %; Hematocrit 43 % (35-47); Hemoglobin 14.3 g/dL (12.0-16.0); Lymphocyte % 18.7 %; Mean Corpuscular HGB Conc 33 g/dL (31-36); Mean Corpuscular Hemoglobin 32 pg (27-31); Mean Corpuscular Volume 96 fL (80-97); Mean Platelet Volume 8.9 fL (7.4-10.4); Platelet Count 257 10^3/uL (150-450); Red Blood Count 4.46 10^6 /uL (3.70-4.87); Red Cell Distribution Width 15 % (10-15); White Blood Count 10.2 10^3/uL (3.5-10.8)
[2020-08-18 05:55] LABS: Albumin 3.5 g/dL (3.2-5.2); Calcium 8.9 mg/dL (8.6-10.3); Potassium 3.9 mmol/L (3.5-5.0); Total Bilirubin 0.2 mg/dL (0.2-1.0)
[2020-08-18 06:01] LABS: Albumin/Globulin Ratio 1.1 (1-3); EGFR African American 107.5 (>60); EGFR Non-African American 88.9 (>60); Globulin 3.2 g/dL (2-4); Total Protein 6.7 g/dL (6.4-8.9)
[2020-08-18] MEDS: Lurasidone 120 mg TAB PO SCH (09:37)
[2020-08-18] MEDS: DULoxetine DR 60 mg CAP PO SCH (09:39)
[2020-08-18] MEDS: Insulin GLARGINE 100 un/ml 10 ml VIAL SUBCUT SCH ×2 (09:39→17:21)
[2020-08-18] MEDS: Nicotine PATCH 21 MG/24 HR PATCH TRANSDERM SCH (12:38)
[2020-08-18] MEDS ORDERED: Perflutren Lipid Microsphere 3 ML VIAL ONE (13:15)
[2020-08-18] MEDS ORDERED: SPIRIVA Respimat (tiotropium) 2.5 mcg/inh Inhaler INH SCH (14:00)
[2020-08-18] MEDS: Enoxaparin 40 MG/0.4 ML SYR SUBCUT SCH (21:38)
[2020-08-18] MEDS: CMCS: Simvastatin 20 mg TAB (NF) PO SCH (21:39)
[2020-08-18] MEDS: oxyCODONE/Acetamin 5/325 mg TAB PO PRN (21:39)
[2020-08-19] MEDS ORDERED: Regadenoson 0.4 MG/5 ML SYRINGE ONE (08:08)
[2020-08-19] MEDS ORDERED: Aminophylline 25 MG/ML VIAL ONE (08:08)
[2020-08-19] MEDS: Mometasone/Formoter 200/5 MDI INH SCH (08:11)
[2020-08-19] MEDS ORDERED: SPIRIVA Respimat (tiotropium) 2.5 mcg/inh Inhaler INH SCH (09:00)
[2020-08-19] MEDS: Nicotine PATCH 21 MG/24 HR PATCH TRANSDERM SCH (10:23)
[2020-08-19] MEDS: DULoxetine DR 60 mg CAP PO SCH (10:25)
[2020-08-19] MEDS: Lurasidone 120 mg TAB PO SCH (10:26)
[2020-08-19] MEDS: oxyCODONE/Acetamin 5/325 mg TAB PO PRN (10:28)
[2020-08-19] MEDS: Insulin GLARGINE 100 un/ml 10 ml VIAL SUBCUT SCH (10:30)
[2020-08-19 14:23] VITALS: BP 125/77
== END 2020-08-19 15:18 | disposition home or self-care (01) | DRG 198 ==
LOC: ED 12:35 → MEDTELE 16:55
PROVIDERS: ADMIT Internal Medicine; ATTEND Internal Medicine

== ENCOUNTER 2021-10-01 18:17 | Inpatient (IN) ==
[2021-10-01] MEDS ORDERED: Lactated Ringers 1000 ml BAG IV.FLUID IV ONE (18:49)
[2021-10-01] MEDS ORDERED: cefTRIAXone 1 gm/50 mL D5W 1 GM/50 ML BAG IV ONE (19:14)
[2021-10-01 19:27] LABS: ABS Basophils 0.1 10^3/ul (0-0.2); ABS Monocytes 1.1 10^3/ul (0-0.8); ABS Neutrophils 13.4 10^3/ul (1.5-7.7); Hematocrit 46 % (35-47); Hemoglobin 15.4 g/dL (12.0-16.0); Lymphocyte % 6.6 %; Mean Corpuscular HGB Conc 34 g/dL (31-36); Mean Corpuscular Hemoglobin 32 pg (27-31); Mean Corpuscular Volume 95 fL (80-97); Mean Platelet Volume 9.3 fL (7.4-10.4); Platelet Count 211 10^3/uL (150-450); Red Blood Count 4.82 10^6 /uL (3.70-4.87); Red Cell Distribution Width 14 % (10-15); White Blood Count 15.6 10^3/uL (3.5-10.8)
[2021-10-01 19:34] LABS: Activated Partial Thrombo Time 33.9 seconds (26.0-38.0); INR 1.12 (0.86-1.15)
[2021-10-01 20:05] LABS: Albumin 3.8 g/dL (3.2-5.2); Albumin/Globulin Ratio 1.3 (1-3); C Reactive Protein 19.59 mg/L (<8.01); Calcium 8.8 mg/dL (8.6-10.3); Globulin 2.9 g/dL (2-4); Potassium 4.1 mmol/L (3.5-5.0); Total Bilirubin 0.4 mg/dL (0.2-1.0); Total Protein 6.7 g/dL (6.4-8.9); eGFR CKD-EPI 104.6 (>60)
[2021-10-01 20:18] LABS: TSH Ultra Thyroid Stim Horm 0.55 mcIU/mL (0.34-5.60)
[2021-10-01 20:58] LABS: High Sensitivity Troponin 1 Hr 6 pg/mL (<15)
[2021-10-01] MEDS ORDERED: Albuterol/Ipratropium NEB.SOL (2.5/0.5 MG) 3 ML NEB.SOLN INH ONE (21:32)
[2021-10-01 22:31] LABS: Urine Appearance Cloudy; Urine Bilirubin Negative (Negative); Urine Blood 1+ (Negative); Urine Color Yellow; Urine Glucose 2+(150 mg/dL) (Negative); Urine Ketones Negative (Negative); Urine Nitrite Negative (Negative); Urine Protein 2+(100 mg/dL) (Negative); Urine Specific Gravity 1.013 (1.002-1.030); Urine Urobilinogen Negative (Negative)
[2021-10-01 22:35] LABS: Urine Bacteria Absent (Absent); Urine Red Blood Cell Trace(0-2/hpf) (Absent); Urine Squamous Epithelial Cell Present (Absent); Urine White Blood Cell Trace(0-5/hpf) (Absent)
[2021-10-02] MEDS ORDERED: Dextrose 50% Syringe 50 ml 25 GM/50 ML SYRINGE IV PUSH PRN (00:32)
[2021-10-02] MEDS ORDERED: Albuterol 2.5mg/3 ml (0.083%) NEB.SOLN INH PRN (00:33)
[2021-10-02] MEDS ORDERED: Albuterol HFA INHALER 8 gm MDI INH PRN (00:33)
[2021-10-02] MEDS ORDERED: Nicotine GUM 4MG FRUIT FLAVOR PO PRN (01:22)
[2021-10-02 05:47] LABS: ABS Eosinophils 0.1 10^3/ul (0-0.6); ABS Lymphocytes 2.3 10^3/ul (1.0-4.8); ABS Neutrophils 10.5 10^3/ul (1.5-7.7); Eosinophil % 0.5 %; Hematocrit 42 % (35-47); Lymphocyte % 16.7 %; Mean Corpuscular HGB Conc 34 g/dL (31-36); Mean Corpuscular Hemoglobin 32 pg (27-31); Mean Corpuscular Volume 96 fL (80-97); Mean Platelet Volume 9.1 fL (7.4-10.4); Nucleated Red Blood Cells % 0.1; Platelet Count 183 10^3/uL (150-450); Red Blood Count 4.35 10^6 /uL (3.70-4.87); Red Cell Distribution Width 14 % (10-15)
[2021-10-02] MEDS ORDERED: Enoxaparin 40 MG/0.4 ML SYR SUBCUT SCH (06:00)
[2021-10-02 06:11] LABS: Calcium 8.6 mg/dL (8.6-10.3); Potassium 3.9 mmol/L (3.5-5.0); eGFR CKD-EPI 104.2 (>60)
[2021-10-02] MEDS: DULoxetine DR 60 mg CAP PO SCH (08:57)
[2021-10-02] MEDS: FLUTICAS/UMECLI/VILANT 200-62.5-25 MDI (NF) INH SCH (08:58)
[2021-10-02] MEDS: Lactated Ringers 1000 ml BAG 1,000 ML IV SCH ×2 (10:59→21:19)
[2021-10-02] MEDS ORDERED: Nicotine PATCH 7 MG/24 HR PATCH TRANSDERM SCH (12:00)
[2021-10-02] MEDS: cefTRIAXone 1 gm/50 mL D5W 1 GM/50 ML BAG IV SCH (17:25)
[2021-10-02] MEDS: Nicotine PATCH 21 MG/24 HR PATCH TRANSDERM SCH (17:35)
[2021-10-02] MEDS: oxyCODONE/Acetamin 5/325 mg TAB PO PRN (18:31)
[2021-10-02] MEDS: Insulin GLARGINE 100 un/ml 10 ml VIAL SUBCUT SCH (21:07)
[2021-10-02] MEDS: Senna TAB 8.6 mg TAB PO SCH (21:24)
[2021-10-03 06:07] LABS: ABS Eosinophils 0.2 10^3/ul (0-0.6); ABS Lymphocytes 2.2 10^3/ul (1.0-4.8); ABS Monocytes 0.8 10^3/ul (0-0.8); ABS Neutrophils 5.4 10^3/ul (1.5-7.7); Eosinophil % 2.3 %; Hematocrit 42 % (35-47); Hemoglobin 13.8 g/dL (12.0-16.0); Lymphocyte % 25.5 %; Mean Corpuscular HGB Conc 33 g/dL (31-36); Mean Corpuscular Hemoglobin 32 pg (27-31); Mean Corpuscular Volume 97 fL (80-97); Mean Platelet Volume 9.4 fL (7.4-10.4); Nucleated Red Blood Cells % 0.1; Platelet Count 165 10^3/uL (150-450); Red Blood Count 4.32 10^6 /uL (3.70-4.87); Red Cell Distribution Width 14 % (10-15); White Blood Count 8.6 10^3/uL (3.5-10.8)
[2021-10-03] MEDS: Lactated Ringers 1000 ml BAG 1,000 ML IV SCH ×2 (07:20→17:39)
[2021-10-03] MEDS: FLUTICAS/UMECLI/VILANT 200-62.5-25 MDI (NF) INH SCH (07:29)
[2021-10-03] MEDS: oxyCODONE/Acetamin 5/325 mg TAB PO PRN (07:32)
[2021-10-03 09:33] LABS: High Sensitivity Troponin 1 Hr 3 pg/mL (<15)
[2021-10-03] MEDS: Enoxaparin 40 MG/0.4 ML SYR SUBCUT SCH (10:14)
[2021-10-03] MEDS: Nicotine PATCH 21 MG/24 HR PATCH TRANSDERM SCH (10:14)
[2021-10-03] MEDS: DULoxetine DR 60 mg CAP PO SCH (10:14)
[2021-10-03] MEDS: cefTRIAXone 1 gm/50 mL D5W 1 GM/50 ML BAG IV SCH (17:38)
[2021-10-03] MEDS: Nystatin TOP POWDER 15 GM BTL TOPICAL SCH ×2 (17:38→20:42)
[2021-10-03] MEDS: Insulin GLARGINE 100 un/ml 10 ml VIAL SUBCUT SCH (20:38)
[2021-10-03] MEDS: Senna TAB 8.6 mg TAB PO SCH (20:58)
[2021-10-04] MEDS: oxyCODONE/Acetamin 5/325 mg TAB PO PRN (08:08)
[2021-10-04] MEDS: Nicotine PATCH 21 MG/24 HR PATCH TRANSDERM SCH (08:09)
[2021-10-04] MEDS: Enoxaparin 40 MG/0.4 ML SYR SUBCUT SCH (08:09)
[2021-10-04] MEDS: DULoxetine DR 60 mg CAP PO SCH (08:11)
[2021-10-04] MEDS: FLUTICAS/UMECLI/VILANT 200-62.5-25 MDI (NF) INH SCH (08:24)
[2021-10-04] MEDS: Nystatin TOP POWDER 15 GM BTL TOPICAL SCH ×3 (10:11→20:02)
[2021-10-04 13:23] LABS: ABS Basophils 0.1 10^3/ul (0-0.2); ABS Eosinophils 0.1 10^3/ul (0-0.6); ABS Lymphocytes 1.7 10^3/ul (1.0-4.8); ABS Monocytes 0.5 10^3/ul (0-0.8); ABS Neutrophils 4.6 10^3/ul (1.5-7.7); Eosinophil % 1.7 %; Hematocrit 43 % (35-47); Hemoglobin 14.1 g/dL (12.0-16.0); Lymphocyte % 24.1 %; Mean Corpuscular HGB Conc 33 g/dL (31-36); Mean Corpuscular Hemoglobin 32 pg (27-31); Mean Corpuscular Volume 97 fL (80-97); Mean Platelet Volume 8.8 fL (7.4-10.4); Nucleated Red Blood Cells % 0.1; Platelet Count 211 10^3/uL (150-450); Red Cell Distribution Width 14 % (10-15)
[2021-10-04 13:44] LABS: High Sensitivity Troponin 1 Hr 4 pg/mL (<15)
[2021-10-04 14:16] LABS: Calcium 8.8 mg/dL (8.6-10.3); Potassium 4.4 mmol/L (3.5-5.0); eGFR CKD-EPI 104.2 (>60)
[2021-10-04] MEDS: Lactated Ringers 1000 ml BAG 1,000 ML IV SCH (17:49)
[2021-10-04] MEDS: cefTRIAXone 1 gm/50 mL D5W 1 GM/50 ML BAG IV SCH (17:51)
[2021-10-04] MEDS: Insulin GLARGINE 100 un/ml 10 ml VIAL SUBCUT SCH (19:58)
[2021-10-04] MEDS: Senna TAB 8.6 mg TAB PO SCH (20:00)
[2021-10-04 23:13] LABS: High Sensitivity Troponin 1 Hr 3 pg/mL (<15)
[2021-10-05 06:22] LABS: ABS Eosinophils 0.2 10^3/ul (0-0.6); ABS Lymphocytes 1.9 10^3/ul (1.0-4.8); ABS Monocytes 0.5 10^3/ul (0-0.8); ABS Neutrophils 3.1 10^3/ul (1.5-7.7); Eosinophil % 2.8 %; Hematocrit 40 % (35-47); Hemoglobin 13.3 g/dL (12.0-16.0); Lymphocyte % 32.7 %; Mean Corpuscular HGB Conc 33 g/dL (31-36); Mean Corpuscular Hemoglobin 33 pg (27-31); Mean Corpuscular Volume 97 fL (80-97); Mean Platelet Volume 9.2 fL (7.4-10.4); Platelet Count 202 10^3/uL (150-450); Red Cell Distribution Width 14 % (10-15); White Blood Count 5.7 10^3/uL (3.5-10.8)
[2021-10-05 06:40] LABS: Calcium 9.1 mg/dL (8.6-10.3); Potassium 3.9 mmol/L (3.5-5.0); eGFR CKD-EPI 101.4 (>60)
[2021-10-05] MEDS: FLUTICAS/UMECLI/VILANT 200-62.5-25 MDI (NF) INH SCH (07:38)
[2021-10-05] MEDS: Enoxaparin 40 MG/0.4 ML SYR SUBCUT SCH (10:28)
[2021-10-05] MEDS: DULoxetine DR 60 mg CAP PO SCH (10:29)
[2021-10-05] MEDS: Nicotine PATCH 21 MG/24 HR PATCH TRANSDERM SCH (10:29)
[2021-10-05] MEDS: Nystatin TOP POWDER 15 GM BTL TOPICAL SCH (10:35)
[2021-10-05 11:35] VITALS: BP 128/67
== END 2021-10-05 16:20 | disposition home or self-care (01) | DRG 139 ==
LOC: EDHOLD 18:17 → ED 18:17 → SUATTDRO 10-02 00:21 → MEDTELE 10-02 09:12 → SUATTDRO 10-04 18:40
PROVIDERS: ADMIT Internal Medicine; ATTEND Hospitalist